=== PATIENT | female | born 1955 | race Caucasian/White ===

== ENCOUNTER → 2019-03-14 12:40 | Outpatient (CLI) | payer MEDICARE, SELFPAY ==
--- NOTE | 2019-03-14 12:57 | RAD_ITS ---
STUDY: X-RAY - PELVIS AND RIGHT HIP REASON FOR EXAM: Pain. TECHNIQUE: 2 views of the pelvis and hip. COMPARISON: None. 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 There is a medical research associate overlying the right abdomen. Normal visualized bilateral iliac wings, sacroiliac joints and visualized sacrum. Normal bilateral superior and inferior pubic rami. Normal pubic symphysis. Normal bilateral ischial tuberosities. Normal visualized femoral head. Normal acetabulum. Normal hip joint. 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 Electronically Signed: Steven Sanchez MD at 15:45 EDT Tel , Service support ,
== END ==
PROVIDERS: Family Provider Family Medicine; PCP Family Medicine; Referring Provider Anesthesiology Pain Medicine; Visit Provider Anesthesiology Pain Medicine
DX: M25.551 Pain in right hip (principal)
CPT/HCPCS: 73502

== ENCOUNTER → 2019-05-01 11:21 | Outpatient (CLI) | payer MEDICARE, SELFPAY ==
--- NOTE | 2019-05-01 11:30 | RAD_ITS ---
STUDY: X-RAY - LUMBAR SPINE REASON FOR EXAM: Female, 63 years old. Low back pain without injury TECHNIQUE: 3 view(s) of the lumbar spine were obtained. COMPARISON: None FINDINGS: Normal lumbar lordosis. There is no substantial scoliosis. There is a normal alignment of the vertebrae. Normal vertebral bodies and endplates. Normal disc space heights. Cholecystectomy clips. A pain pump is in place. RAD/Lumbar Spine 2 or 3 Views IMPRESSION: No osseous abnormality is evident. Electronically Signed: Tano White MD at 17:16 EDT Tel , Service support ,
== END ==
PROVIDERS: Family Provider Family Medicine; PCP Family Medicine; Referring Provider Anesthesiology Pain Medicine; Visit Provider Anesthesiology Pain Medicine
DX: M54.5 Low back pain (principal)
CPT/HCPCS: 72100

== ENCOUNTER → 2019-06-01 09:48 | Outpatient (CLI) | payer MEDICARE, SELFPAY ==
[2019-06-01 11:25] LABS: Hemoglobin 12.9 g/dL (12.0-15.0); Mean Corp Hgb Conc 33.1 g/dL (32-36); Mean Corpuscular Hgb 32.5 pg (27.0-32.0); Mean Corpuscular Volume 98.2 fL (81-99); Mean Platelet Vol. 12.1 fl (6.2-12.0); Platelet Count 147 K/mm3 (150-450); RBC Distribution Width CV 12.2 % (11.6-14.6); RBC Distribution Width SD 44.2 fl (35.1-43.9); Red Blood Count 3.97 M/mm3 (4.2-5.4); White Blood Count 4.8 K/mm3 (4.4-11.0)
== END ==
PROVIDERS: Family Provider Family Medicine; PCP Family Medicine; Referring Provider Anesthesiology; Visit Provider Anesthesiology
DX: M54.2 Cervicalgia (principal); M54.5 Low back pain; R23.3 Spontaneous ecchymoses
CPT/HCPCS: 36415; 85027

== ENCOUNTER → 2019-06-19 07:47 | Outpatient (CLI) | payer MEDICARE, SELFPAY ==
[2019-06-19 08:07] LABS: International Normalized Ratio 0.9; Prothrombin Time (Protime)PT. 12.4 SECONDS (11.7-14.9)
== END ==
PROVIDERS: Family Provider Family Medicine; PCP Family Medicine; Referring Provider Anesthesiology; Visit Provider Anesthesiology
DX: R23.3 Spontaneous ecchymoses (principal); M54.2 Cervicalgia; M54.5 Low back pain
CPT/HCPCS: 36415; 85610

== ENCOUNTER → 2019-06-26 14:01 | Outpatient (CLI) | payer MEDICARE, SELFPAY ==
--- NOTE | 2019-06-26 14:11 | RAD_ITS ---
HISTORY:CHRONIC PAIN, NKIPT HAS INFLAMMED BURSA AND CALCIUM BUILD-UP CHRONIC PAIN, NKIPT HAS INFLAMMED BURSA AND CALCIUM BUILD-UP COMPARISON: March 14, 2019 FINDINGS: # of images incl. paperwork: 3 XR Hip Unilateral with Pelvis when performed; 2-3 Views: Right BONE AND JOINTS: No acute fracture or subluxation. Again noted is calcification seen adjacent to the greater trochanter on the left. This may represent an enthesophyte versus calcific tendinitis. No evidence of an acute fracture is noted. SOFT TISSUES: Neurostimulator battery is visualized overlying the right ilium similar to prior study. The tip of the wire is not visualized on this study. RAD/HIP, UNI W/ Pelvis 2-3 Views IMPRESSION: Stable pelvis and right hip at 0155 Reported and signed by: Kamilah Vasquez DO Electronically Signed: Kamilah Vasquez DO at 1:54 EDT Tel , Service support ,
--- NOTE | 2019-06-26 14:11 | RAD_ITS ---
HISTORY:CHRONIC PAIN, NKIPT HAS INFLAMMED BURSA AND CALCIUM BUILD-UP CHRONIC PAIN, NKIPT HAS INFLAMMED BURSA AND CALCIUM BUILD-UP COMPARISON: None FINDINGS: # of images incl. paperwork: 4 XR Knee Complete 4 Views or More: Right BONE AND JOINTS: No acute fracture or subluxation. Mild lateral patellar tilt SOFT TISSUES: Unremarkable. No radiopaque foreign body. RAD/Knee 4 or More Views IMPRESSION: No acute pathology Mild lateral patellar tilt at 0030 Reported and signed by: Kamilah Vasquez DO Electronically Signed: Kamilah Vasquez DO at 0:29 EDT Tel , Service support ,
== END ==
PROVIDERS: Family Provider Family Medicine; PCP Family Medicine; Referring Provider Anesthesiology Pain Medicine; Visit Provider Anesthesiology Pain Medicine
DX: M25.559 Pain in unspecified hip (principal); M25.569 Pain in unspecified knee
CPT/HCPCS: 73502; 73564

== ENCOUNTER → 2019-08-22 06:18 | Outpatient (CLI) | payer MEDICARE, SELFPAY ==
--- NOTE | 2019-08-22 06:35 | MRI_ITS ---
STUDY: MRI RIGHT HIP REASON FOR EXAM: Right hip pain. TECHNIQUE: Standardized fat and water weighted pulse sequences were obtained in all 3 orthogonal planes. COMPARISON: Radiographs 06/26/2019 and 03/14/2019. FINDINGS: Normal hip joint without articular joint space narrowing. Normal acetabulum. Normal labrum. Normal femoral head. Normal femoral neck and intratrochanteric region. There is a suspected signal void in the right gluteus medius tendon at the greater trochanteric insertion without adjacent inflammation (inversion recovery axial image 19) suggestive of calcific tendinitis as demonstrated on the radiographs. Normal gluteus minimus and iliopsoas tendons and distal insertions. There is no trochanteric, iliopsoas or iliopectineal bursitis. Normal superior and inferior pubic rami. Normal pubic symphysis. Normal ischial tuberosity. Normal origin of the hamstring tendons. Normal visualized iliac wing, sacroiliac joint, and sacral ala. There is artifact from an implanted pain pump. MRI/Lower Ext Joint Only (Routine) IMPRESSION: Calcific tendinitis of the right gluteus medius tendon without adjacent inflammation. Otherwise, unremarkable MRI of the right hip. Electronically Signed: Steven Sanchez MD at 8:23 EDT Tel , Service support ,
== END ==
PROVIDERS: Family Provider Family Medicine; PCP Family Medicine; Referring Provider Specialist; Visit Provider Specialist
DX: M25.551 Pain in right hip (principal)
CPT/HCPCS: 73721

== ENCOUNTER → 2020-09-11 12:09 | Outpatient (CLI) | payer MEDICARE, MEDICAID, SELFPAY ==
--- NOTE | 2020-09-11 12:12 | RAD_ITS ---
STUDY: X-RAY - SACRUM/COCCYX REASON FOR EXAM: Female, 65 years old. pelvic and tailbone pain -- NKI TECHNIQUE: 3 view(s) of the sacrum and coccyx were obtained. COMPARISON: None. FINDINGS: Normal bilateral sacroiliac joints. Normal visualized sacral ala and fused sacral bodies. Normal sacrococcygeal junction with a normal angulation. Normal coccygeal segments. The presacral soft tissue structures are unremarkable. RAD/Sacrum-Coccyx min 2 Views IMPRESSION: Normal x-rays of the sacrum and coccyx. Electronically Signed: Joe Quinones MD at 17:03 EST Tel , Service support ,
== END ==
PROVIDERS: PCP Family Medicine; Visit Provider Anesthesiology Pain Medicine
DX: R10.2 Pelvic and perineal pain (principal); M53.3 Sacrococcygeal disorders, not elsewhere classified
CPT/HCPCS: 72220

== ENCOUNTER → 2022-02-25 | Outpatient (CLI) | payer MEDICARE, MEDICAID, SELFPAY ==
--- NOTE | 2022-02-25 09:57 | MRI_ITS ---
STUDY: MRI CERVICAL SPINE WITHOUT CONTRAST REASON FOR EXAM: Female, 66 years old. Neck Pain radiating into R arm, no injury TECHNIQUE: Standardized fat and water weighted pulse sequences were obtained in the sagittal and axial planes. COMPARISON: Cervical spine radiographs 02/05/2022. FINDINGS: Normal foramen magnum and brainstem-cervical cord junction. Normal craniovertebral junction. Normal anterior atlantoaxial articulation. Normal odontoid process. Normal cervical lordosis. Normal vertebral bodies and posterior osseous elements. C2-3: Normal endplates. Normal disc height, signal and morphology. Normal central canal and intervertebral neural foramina. C3-4: Normal endplates. Normal disc height, signal and morphology. Normal central canal and intervertebral neural foramina. C4-5: Normal endplates. Minimal disc space height narrowing. Minimal ventral extra dural defect due to bone spurs. Normal central canal and intervertebral neural foramina. C5-6: Normal endplates. Minimal disc space height narrowing. Normal central canal and intervertebral neural foramina. C6-7: Normal endplates. Normal disc height, signal and morphology. Normal central canal and intervertebral neural foramina. C7-T1: Normal endplates. Normal disc height, signal and morphology. Normal central canal and intervertebral neural foramina. T1-T2, T2-T3, T3-T4 and T4-T5: (Sagittal only). Normal endplates. Normal disc height, signal and morphology. No ventral extradural defects. Normal central canal and intervertebral neural foramina. Small round lower T4 benign vertebral body hemangioma. Normal cervical cord. Normal upper thoracic spinal cord. Normal included brainstem and cerebellum. Normal visualized soft tissue structures. MRI/Spine Cervical (Routine) IMPRESSION: 1. No MRI evidence of cervical extruded disc fragment or cervical nerve root displacement. 2. Minimal C4-C5 disc space height narrowing with minimal ventral extradural defects on both sides due to bone spurs. 3. Normal cervical spinal cord. Electronically Signed: Bebeto Hernandez MD at 16:05 EDT ,
== END | disposition home or self-care (01) ==
LOC: MRI 09:57
PROVIDERS: PCP Family Medicine
DX: M48.02 Spinal stenosis, cervical region (principal)
CPT/HCPCS: 72141

== ENCOUNTER → 2023-11-10 | Outpatient (CLI) | payer MEDICARE, MEDICAID, SELFPAY ==
--- NOTE | 2023-11-10 12:12 | RAD_ITS ---
EXAM: XR CERVICAL SPINE, 4 OR 5 VIEWS CLINICAL INDICATION: Spondylosis without myelopathy or radiculopathy, site unspecified TECHNIQUE: Frontal, lateral and bilateral oblique views of the cervical spine. COMPARISON: No relevant prior studies available. FINDINGS: VERTEBRAE: Unremarkable. Preserved vertebral body height. No acute fracture. No spondylolisthesis. Preservation of the normal cervical lordosis. No significant facet arthropathy. DISC SPACES: Unremarkable. Disc spaces are maintained. SOFT TISSUES: Unremarkable. No prevertebral soft tissue widening. LUNG APICES: Clear. RAD/Cerv Spine 2 or 3 Views IMPRESSION: No evidence of acute fracture or spondylolisthesis. Electronically Signed: Cuate Cast MD at 17:56 EST ,
--- OUTSIDE RECORDS SUMMARY | 2023-11-10 12:19 | XMS RPT_ITS | CCD ---
Author Name Unknown Address [id number] [place] [address] Organization [facility] Care Team Providers Care Manager Building Name Role Phone SOBEIDA MORALES Referring Unavailable SOBEIDA MORALES Y Admitting Unavailable SOBEIDA MORALES Attending Unavailable SOBEIDA MORALES Referring Unavailable Conor Sprague Primary Care Provider [phone] Conor Sprague Primary Care Provider [phone] Conor Sprague DO Primary Care Provider Conor Sprague DO Primary Care Provider Conor Sprague DO Primary Care Provider Conor Sprague DO Primary Care Provider Conor Sprague Attending Unavailable PROVIDER, UNKNOWN Referring Unavailable Conor Sprague Primary Care Unavailable Conner Weber Attending Unavailable PROVIDER, UNKNOWN Referring Unavailable Conor Sprague Primary Care Unavailable Conor Sprague Attending Unavailable PROVIDER, UNKNOWN Referring Unavailable Conor Sprague Primary Care Unavailable Conor Sprague Attending Unavailable PROVIDER, UNKNOWN Referring Unavailable Conor Sprague Primary Care Unavailable Simone Gramajo Attending Unavailable PROVIDER, UNKNOWN Referring Unavailable Conor Sprague Primary Care Unavailable PROVIDER, UNKNOWN Attending Unavailable PROVIDER, UNKNOWN Referring Unavailable Conor Sprague Primary Care Unavailable Conor Sprague Attending Unavailable PROVIDER, UNKNOWN Referring Unavailable Conor Sprague Primary Care Unavailable Rose Marie Cohen DO Primary Care Provider Marck Dc MD Unavailable [phone] Rose Marie Cohen DO Primary Care Provider Marck Dc MD Unavailable Rose Marie Cohen DO Primary Care Provider COHEN, ROSE MARIE Attending Unavailable COHEN, ROSE MARIE Primary Care Unavailable COHEN, ROSE MARIE Primary Care Unavailable JOURILES, ELIESER Attending Unavailable JOURILES, ELIESER Referring Unavailable COHEN, ROSE MARIE Primary Care Unavailable COHEN, ROSE MARIE Attending Unavailable COHEN, ROSE MARIE Referring Unavailable COHEN, ROSE MARIE Primary Care Unavailable COHEN, ROSE MARIE Attending Unavailable COHEN, ROSE MARIE Primary Care Unavailable MARCK DC Attending Unavailable COHEN, ROSE MARIE Primary Care Unavailable COHEN, ROSE MARIE Attending Unavailable COHEN, ROSE MARIE Primary Care Unavailable COHEN, ROSE MARIE Attending Unavailable COHEN, ROSE MARIE Primary Care Unavailable COHEN, ROSE MARIE Attending Unavailable COHEN, ROSE MARIE Primary Care Unavailable Allergies Allergy Classification Reported Allergen(s) Allergy Type Date of Onset Reaction(s) Facility Adhesive Tape (3 sources) Adhesive Tape Substance Allergy 8 Other (See Comments) [facility] Cephalosporins (antibiotic) (3 sources) Cephalexin Drug Allergy 1 [facility] Germanium (3 sources) Germanium Drug Allergy 0 Nausea Only [facility] Quinolones (antibiotic) (3 sources) Ciprofloxacin Drug Allergy 1 [facility] (1 source) Adhesive agent; Translations: [ADHESIVE] Propensity to adverse reactions to drug (disorder) 8 [facility] Repository (1 source) NEOMYCIN-BACITRAC IN-POLYMYXIN; Translations: [NEOMYCIN-BACITRA TASNEEM-POLYMYXIN] Propensity to adverse reactions to drug (disorder) 1 [facility] Repository (16 sources) Adhesive Tape Propensity to adverse reactions to drug 8 Other (See Comments) [place], [place] (20 sources) Bacitracin / Neomycin / Polymyxin B Drug Allergy 1 Rash [place], [place] (20 sources) Neomycin-Polymyxi n-Gramicidin Propensity to adverse reactions to drug 5 Rash [place], [place] (10 sources) Germanium Drug Allergy 0 Nausea Only [place], [place] (20 sources) Cephalexin Drug Allergy 1 [facility] Work Phone: (20 sources) Ciprofloxacin Drug Allergy 1 [facility] Work Phone: (11 sources) Neospor[address] Plus [address] Propensity to adverse reactions to drug 0 Rash [facility] (16 sources) Bacitracin Drug Allergy 2 [facility] (16 sources) Germanium Drug Allergy 0 Nausea Only [facility] (16 sources) Neomycin Drug Allergy 2 [facility] (16 sources) Pneumococcal vaccine Drug Allergy 2 [facility] (16 sources) Polymyxin B Drug Allergy 2 [facility] (12 sources) Gdw-Unjfk-Vona-Li docaine Drug Allergy 0 Rash [facility] NEGATED: Highlighted row has been ruled out! (3 sources) Other Propensity to adverse reactions 0 [facility] Work Phone: Medications Current Medications Medication Drug Class(es) Dates Sig (Normalized) Sig (Original) [id number] actuat albuterol 0.09 mg/actuat metered dose inhaler (20 sources) beta2-Adrenergic Agonist Start: 07-01-2023 End: 06-30-2024 take 2 puff(s) by inhalation every six hours as needed for wheezing albuterol (ProAir HFA) 108 (90 Base) MCG/ACT inhaler Inhale 2 puffs every 6 hours as needed for wheezing. 18 g 11 07/01/2023 06/30/2024 Active Completed/Discontinued Medications Medication Drug Class(es) Dates Sig (Normalized) Sig (Original) acetaminophen 325 mg oral tablet (17 sources) Start: 01-28-2022 End: 01-28-2022 acetaminophen (TYLENOL) tablet 650 mg Problems Active Problems Problem Classification Problem Date Documented Da te Episodic/Chronic Abdominal pain (20 sources) Abdominal pain; Translations: [Unspecified abdominal pain] Onset: 05-08-2015 Resolved: 12-07-2018 12-07-2018 Episodic Anxiety disorders (20 sources) Mixed anxiety and depressive disorder; Translations: [Anxiety disorder, unspecified] Onset: 04-08-2016 04-08-2016 Chronic Cancer of bladder (20 sources) Malignant neoplasm of bladder, unspecified; Translations: [Malignant tumor of urinary bladder] Onset: 04-27-2018 04-04-2019 Chronic Chronic obstructive pulmonary disease and bronchiectasis (20 sources) Chronic obstructive lung disease; Translations: [Mixed simple and mucopurulent chronic bronchitis] Onset: 10-24-2016 12-07-2018 Chronic Disorders of lipid metabolism (2 sources) Pure hypercholesterolemi a, unspecified; Translations: [Pure hypercholesterolemi a, unspecified] Onset: 01-28-2022 Chronic Esophageal disorders (2 sources) Gastro-esophageal reflux disease without esophagitis; Translations: [Gastro-esophageal reflux disease without esophagitis] Onset: 01-28-2022 Chronic Fluid and electrolyte disorders (1 source) Dehydration; Translations: [Dehydration] Episodic Headache; including migraine (2 sources) Headache; Translations: [Intractable headache, unspecified chronicity pattern, unspecified headache type] Episodic Headache; including migraine (2 sources) Headache; including migraine; Translations: [Headache, unspecified] Onset: 01-28-2022 Nonmalignant breast conditions (1 source) Lump in lower outer quadrant of right breast; Translations: [Unspecified lump in the right breast, lower outer quadrant] Episodic Occlusion or stenosis of precerebral arteries (4 sources) Bilateral stenosis of carotid arteries; Translations: [Occlusion and stenosis of bilateral carotid arteries] Onset: 02-22-2023 Chronic Other connective tissue disease (6 sources) Tendinitis of right hip; Translations: [Tendinitis of right hip] Onset: 02-22-2019 02-22-2019 Other lower respiratory disease (2 sources) Pulmonary fibrosis, unspecified; Translations: [Pulmonary fibrosis, unspecified] Onset: 11-06-2021 Chronic Other lower respiratory disease (1 source) Lung field abnormal; Translations: [Other nonspecific abnormal finding of lung field] Episodic Other non-traumatic joint disorders (1 source) Pain in right hip joint; Translations: [Pain in right hip] Episodic Other skin disorders (1 source) Lesion of skin of face; Translations: [Disorder of the skin and subcutaneous tissue, unspecified] 10-06-2023 Episodic Other skin disorders (2 sources) Disorder of the skin and subcutaneous tissue, unspecified; Translations: [Disorder of the skin and subcutaneous tissue, unspecified] Onset: 10-06-2023 Episodic Septicemia (except in labor) (6 sources) 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; Translations: [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] Onset: 12-07-2018 12-07-2018 Spondylosis; intervertebral disc disorders; other back problems (20 sources) Inflammation of sacroiliac joint; Translations: [Sacroiliitis, not elsewhere classified] Onset: 08-09-2019 Resolved: 05-19-2021 08-09-2019 Chronic Substance-related disorders (20 sources) Smoker; Translations: [Nicotine dependence] Onset: 03-24-2016 03-24-2016 Chronic Unclassified (1 source) Pre-Op Exam Onset: 06-14-2018 Unclassified (1 source) Evaluation finding; Translations: [Blood tests prior to treatment or procedure] Unclassified (1 source) Patient encounter status; Translations: [Encounter for screening for lung cancer] Urinary tract infections (20 sources) Recurrent urinary tract infection; Translations: [Urinary tract infection, site not specified] Onset: 01-02-2020 01-02-2020 Episodic Past or Other Problems Problem Classification Problem Date Documented Da te Episodic/Chronic Allergic reactions (4 sources) Allergy status to other antibiotic agents status; Translations: [Allergy status to other drugs, medicaments and biological substances status] Onset: 01-28-2022 Episodic Anal and rectal conditions (19 sources) Rectal polyp; Translations: [Rectal polyp] Onset: 04-11-2018 Resolved: 12-07-2018 12-07-2018 Episodic Biliary tract disease (19 sources) Biliary colic; Translations: [Calculus of bile duct without cholangitis or cholecystitis without obstruction] Onset: 07-07-2015 Resolved: 12-07-2018 12-07-2018 Episodic Cancer of bladder (3 sources) H/O: malignant neoplasm; Translations: [Personal history of malignant neoplasm of bladder] Onset: 01-28-2022 Episodic Chronic obstructive pulmonary disease and bronchiectasis (3 sources) Bronchitis; Translations: [Bronchitis, not specified as acute or chronic] Onset: 01-28-2022 Episodic Coagulation and hemorrhagic disorders (10 sources) Platelet count below reference range; Translations: [Thrombocytopenia, unspecified] Onset: 08-09-2019 Resolved: 05-19-2021 08-09-2019 Chronic Conditions associated with dizziness or vertigo (4 sources) Dizziness; Translations: [Dizziness and giddiness] Onset: 06-15-2023 06-15-2023 Episodic Genitourinary symptoms and ill-defined conditions (20 sources) Scalding pain on urination ; Translations: [Increased frequency of urination] Onset: 05-11-2022 Episodic Immunizations and screening for infectious disease (4 sources) Viral screening status; Translations: [Encounter for screening for other viral diseases] Onset: 06-15-2023 06-15-2023 Episodic Mood disorders (11 sources) Mood disorders; Translations: [Depression, unspecified] Onset: 01-28-2022 Nausea and vomiting (2 sources) Nausea with vomiting, unspecified; Translations: [Nausea with vomiting, unspecified] Onset: 08-17-2021 Episodic Open wounds of extremities (4 sources) Tear of skin; Translations: [Laceration without foreign body of left forearm, initial encounter] Onset: 06-15-2023 06-15-2023 Episodic Other aftercare (2 sources) Other usp (current) drug therapy; Translations: [Other usp (current) drug therapy] Onset: 01-28-2022 Episodic Other and unspecified benign neoplasm (19 sources) History of polyp of colon; Translations: [Personal history of colonic polyps] Onset: 01-23-2018 Resolved: 12-07-2018 12-07-2018 Episodic Other and unspecified benign neoplasm (19 sources) Polyp of ascending colon; Translations: [Polyp of colon] Onset: 04-11-2018 Resolved: 04-11-2018 04-11-2018 Episodic Other bone disease and musculoskeletal deformities (2 sources) Disorder of bone density and structure, unspecified; Translations: [Disorder of bone density and structure, unspecified] Onset: 09-23-2021 Episodic Other circulatory disease (20 sources) Carotid bruit; Translations: [Other specified symptoms and signs involving the circulatory and respiratory systems] Onset: 12-05-2017 12-05-2017 Episodic Other circulatory disease (3 sources) Other specified symptoms and signs involving the circulatory and respiratory systems; Translations: [Other symptoms involving cardiovascular system] Onset: 08-17-2021 Episodic Other connective tissue disease (20 sources) Tendinitis of right hip; Translations: [Other specified enthesopathies of right lower limb, excluding foot] Onset: 02-22-2019 02-22-2019 Episodic Other gastrointestinal disorders (20 sources) Drug-induced constipation; Translations: [Drug induced constipation] Onset: 04-11-2018 04-11-2018 Episodic Other gastrointestinal disorders (2 sources) Mass of pancreas; Translations: [Pancreatic mass] Episodic Other lower respiratory disease (20 sources) Lung mass; Translations: [Other nonspecific abnormal finding of lung field] Onset: 03-02-2021 03-02-2021 Episodic Other non-traumatic joint disorders (2 sources) Pain in right hip; Translations: [Pain in right hip] Onset: 08-19-2021 Episodic Other screening for suspected conditions (not mental disorders or infectious disease) (13 sources) Computed tomography result abnormal; Translations: [Abnormal findings on diagnostic imaging of other specified body structures] Onset: 04-11-2018 Resolved: 12-07-2018 12-07-2018 Chronic Other screening for suspected conditions (not mental disorders or infectious disease) (20 sources) Platelet count below reference range; Translations: [Encounter for screening for malignant neoplasm of respiratory organs] Onset: 08-09-2019 08-09-2019 Episodic Pancreatic disorders (not diabetes) (1 source) Disorder of pancreas; Translations: [Other specified diseases of pancreas] Episodic Residual codes; unclassified (6 sources) Computed tomography result abnormal; Translations: [Abnormal finding on CT scan] Onset: 04-11-2018 Resolved: 12-07-2018 12-07-2018 Episodic Residual codes; unclassified (2 sources) Asymptomatic menopausal state; Translations: [Asymptomatic menopausal state] Onset: 09-23-2021 Episodic Septicemia (except in labor) (20 sources) 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; Translations: [Other herpesviral infection] Onset: 12-07-2018 12-07-2018 Episodic Spondylosis; intervertebral disc disorders; other back problems (20 sources) Neck pain; Translations: [Spinal stenosis of lumbar region] Onset: 02-22-2019 02-22-2019 Episodic Results Test Name Value Interpretation Reference Range Facil ity Vital Signs Date Time Vital Sign Value Performing Clinician Faci lity 10-06-2023 14:03-0500 Body height 160 cm Rose Marie Cohen DO Work Phone: [employer] 10-06-2023 14:03-0500 Body mass index (BMI) [Ratio] 19.84 kg/m2 Rose Marie Cohen DO Work Phone: [facility] 10-06-2023 14:03-0500 Body weight 50.8 kg Rose Marie Cohen DO Work Phone: [facility] 10-06-2023 14:03-0500 Diastolic blood pressure 60 mm[Hg] Rose Marie Cohen DO Work Phone: [facility] 10-06-2023 14:03-0500 Heart rate 70 /min Rose Marie Cohen DO Work Phone: [facility] 10-06-2023 14:03-0500 SaO2% (BldA) [Mass fraction] 97 % Rose Marie Cohen DO Work Phone: [facility] 10-06-2023 14:03-0500 Systolic blood pressure 95 mm[Hg] Rose Marie Cohen DO Work Phone: [facility] 10-05-2023 17:02-0500 Diastolic blood pressure 76 mm[Hg] Elieser Christianson MD Work Phone: [facility] 10-05-2023 17:02-0500 Heart rate 78 /min Elieser Christianson MD Work Phone: [facility] 10-05-2023 17:02-0500 Respiratory rate 16 /min Elieser Christianson MD Work Phone: [facility] 10-05-2023 17:02-0500 SaO2% (BldA) [Mass fraction] 98 % Elieser Christianson MD Work Phone: [facility] 10-05-2023 17:02-0500 Systolic blood pressure 128 mm[Hg] Elieser Christianson MD Work Phone: [facility] 10-05-2023 15:10-0500 Body mass index (BMI) [Ratio] 19.31 kg/m2 Elieser Christianson MD Work Phone: [facility] 10-05-2023 15:10-0500 Body weight 49.44 kg Elieser Christianson MD Work Phone: [facility] 06-15-2023 08:52-0400 Body height 160 cm Rose Marie Cohen DO Work Phone: [facility] 06-15-2023 08:52-0400 Body mass index (BMI) [Ratio] 19.7 kg/m2 Rose Marie Cohen DO Work Phone: [facility] 06-15-2023 08:52-0400 Body temperature 97.7 [degF] Rose Marie Cohen DO Work Phone: [facility] 06-15-2023 08:52-0400 Body weight 50.44 kg Rose Marie Cohen DO Work Phone: [facility] 06-15-2023 08:52-0400 Diastolic blood pressure 64 mm[Hg] Rose Marie Cohen DO Work Phone: [facility] 06-15-2023 08:52-0400 Heart rate 74 /min Rose Marie Cohen DO Work Phone: [facility] 06-15-2023 08:52-0400 SaO2% (BldA) [Mass fraction] 99 % Rose Marie Cohen DO Work Phone: [facility] 06-15-2023 08:52-0400 Systolic blood pressure 98 mm[Hg] Rose Marie Cohen DO Work Phone: [facility] 01-28-2022 13:40-0400 Diastolic blood pressure 74 mm[Hg] Ritesh Lawton MD Work Phone: [facility] 01-28-2022 13:40-0400 Heart rate 71 /min Ritesh Lawton MD Work Phone: [facility] 01-28-2022 13:40-0400 Respiratory rate 16 /min Ritesh Lawton MD Work Phone: [facility] 01-28-2022 13:40-0400 SaO2% (BldA) [Mass fraction] 99 % Ritesh Lawton MD Work Phone: [facility] 01-28-2022 13:40-0400 Systolic blood pressure 123 mm[Hg] Ritesh Lawton MD Work Phone: [facility] 01-28-2022 11:00-0400 Body temperature 97.7 [degF] Ritesh Lawton MD Work Phone: [facility] 05-14-2021 22:44-0400 Body temperature 97.5 [degF] Casper Amor MD Work Phone: [facility] Work Phone: 05-14-2021 22:44-0400 Diastolic blood pressure 60 mm[Hg] Casper Amor MD Work Phone: [facility] Work Phone: 05-14-2021 22:44-0400 Heart rate 62 /min Casper Amor MD Work Phone: [facility] Work Phone: 05-14-2021 22:44-0400 Respiratory rate 15 /min Casper Amor MD Work Phone: [facility] Work Phone: 05-14-2021 22:44-0400 SaO2% (BldA) [Mass fraction] 97 % Casper Amor MD Work Phone: [facility] Work Phone: 05-14-2021 22:44-0400 Systolic blood pressure 94 mm[Hg] Casper Amor MD Work Phone: [facility] Work Phone: 05-14-2021 20:28-0400 Body height 160 cm Casper Amor MD Work Phone: [facility] Work Phone: 05-14-2021 20:28-0400 Body mass index (BMI) [Ratio] 19.31 kg/m2 Casper Amor MD Work Phone: [facility] Work Phone: 05-14-2021 20:28-0400 Body weight 49.44 kg Casper Amor MD Work Phone: [facility] Work Phone: 03-13-2021 13:29-0400 Heart rate 72 /min Erwin Etienne MD Work Phone: [facility] Work Phone: 03-13-2021 13:29-0400 Respiratory rate 18 /min Erwin Etienne MD Work Phone: [facility] Work Phone: 03-13-2021 13:29-0400 SaO2% (BldA) [Mass fraction] 97 % Eriwn Etienne MD Work Phone: [facility] Work Phone: Encounters Encounter Date Encounter Type Care Provider Facility Start: 10-06-2023 End: 10-06-2023 ambulatory ROSE MARIE COHEN [facility] Start: 10-06-2023 End: 10-06-2023 Office outpatient visit 15 minutes Rose Marie Cohen DO Work Phone: [facility] Procedures Date Procedure Procedure Detail Performing Clinician Start: 10-05-2023 Ct abdomen & pelvis w/contrast material Elieser Christianson MD Work Phone: Start: 10-05-2023 Urinalysis complete panel - Urine Elieser Christianson MD Work Phone: Start: 10-05-2023 Urnls dip stick/tabl et reagent auto microscopy Elieser Christianson MD Work Phone: Start: 10-05-2023 Basic metabolic pane l calcium total Elieser Christianson MD Work Phone: Start: 06-17-2023 Lipid 1996 panel - S stefany or Plasma Rose Marie Cohen DO Work Phone: Start: 06-15-2023 Culture bacterial quanttative colony count urine Rose Marie Cohen DO Work Phone: Start: 06-15-2023 Urnls dip stick/tabl et rgnt auto w/o microscopy Rose Marie Cohen DO Work Phone: Start: 02-02-2023 Urnls dip stick/tabl et rgnt auto w/o microscopy Marck Dc MD Work Phone: Start: 07-15-2022 End: 07-15-2022 Screening digital breast tomosynthesis lorena Sprague DO Work Phone: Start: 01-28-2022 Radiologic exam ches t 2 views Ritseh Lawton MD Work Phone: Start: 01-28-2022 Basic metabolic pane l calcium total Ritesh Lawton MD Work Phone: Start: 08-19-2021 Radex hip unilateral with pelvis 2-3 views Conor Rucker Eusebiojessicacecil DO Work Phone: Start: 08-17-2021 Duplex scan extracra nial art compl bi study Conor Rucker Katiejayantcecil DO Work Phone: Start: 08-17-2021 Mri brain brain stem w/o w/contrast material Hung Flores Denisha DO Work Phone: Start: 07-13-2021 Us breast uni real t mary beth with image limited Conor Rucker Katiejayantcecil DO Work Phone: Start: 07-13-2021 Diagnostic mammograp hy computer-aided detcj bi Conor Rucker Darcie DO Work Phone: Start: 07-13-2021 MG CANCER RISK SURVEY P aurakesh Sprague DO Work Phone: Start: 05-14-2021 ADD ON LAB TEST Casper Amor MD Work Phone: Start: 05-14-2021 Ct head/brain w/o co ntrast material Casper Amor MD Work Phone: Start: 05-14-2021 Comprehensive metabo lic panel Casper Amor MD Work Phone: Start: 05-14-2021 Radiologic exam ches t 2 views Casper Amor MD Work Phone: Start: 05-14-2021 Urnls dip stick/tabl et rgnt auto w/o microscopy Casper Amor MD Work Phone: Start: 03-13-2021 Brncdilat rspse spmt ry pre&post-brncdilat admn Erwin Etienne MD Work Phone: Start: 09-29-2020 Creatinine blood Conor Sprague Work Phone: Start: 05-21-2020 Screening digital br east tomosynthesis bi Conor Rucker Darcie Work Phone: Start: 11-30-2019 Mri spinal canal tho racic w/o contrast matrl Andrew Block Work Phone: Start: 11-09-2019 Urnls dip stick/tabl et rgnt auto w/o microscopy Mirlande Hall [employer] Work Phone: Start: 11-06-2019 Mri spinal canal lum bar w/o contrast material Andrew Block MD Work Phone: Start: 10-18-2019 Urnls dip stick/tabl et rgnt auto w/o microscopy Marck Dc MD Work Phone: Start: 09-19-2019 Ldct for lung ca screen Conor Rucker Darcie Work Phone: Start: 04-11-2018 Colonoscopy Ritesh sevilla MD Work Phone: Plan of Treatment Date Care Activity Detail Author Start: 05-19-2030 DTaP/Tdap/Td vaccine (2 - Td or Tdap) DTaP/Tdap/Td vaccine (2 - Td or Tdap) [facility] Start: 05-19-2030 DTaP/Tdap/Td vaccine (2 - Td) DTaP/Tdap/Td vaccine (2 - Td) [place] Start: 05-19-2030 DTaP/Tdap/Td Vaccine s (2 - Td or Tdap) DTaP/Tdap/Td Vaccines (2 - Td or Tdap) [facility] Start: 06-17-2028 Lipid panel Lipid Panel [facility] Start: 04-11-2028 Screening for malign ant neoplasm of colon [facility] Start: 04-11-2025 Colon cancer screen colonoscopy Colon cancer screen colonoscopy [place] Start: 04-11-2025 Screening for malign ant neoplasm of colon [facility] Start: 07-31-2024 Medicare Advantage Annual Wellness Visit (AWV) Medicare Advantage Annual Wellness Visit (AWV) [facility] Start: 06-17-2024 Diabetes mellitus screening Diabetes Screening [facility] Start: 02-01-2024 End: 02-01-2024 Patient encounter procedure [facility] Start: 12-30-2023 Depresssion Monitoring Depresssion M onitoring [facility] Start: 11-08-2023 End: 11-08-2023 Patient encounter procedure MARIA FARERI [facility] Start: 10-11-2023 End: 10-11-2023 Patient encounter procedure 10/11/2023 1:40 PM EST Office Visit [facility] [address] [place] [address] Rd [address] [place] [address] Rose Marie Cohen, [address] [facility] [address] [place] [address] [facility] Start: 10-06-2023 End: 10-06-2023 Patient encounter procedure 10/06/2023 2:00 PM EST Office Visit [address] [place] [address] Rose Marie Cohen DO [address] [facility] [address] [place] [address] [facility] Start: 09-12-2023 End: 09-12-2024 CT Chest for screening WO contrast CT lung screening low dose Imaging Routine Cigarette nicotine dependence without complication Expected: 09/12/2023, Expires: 09/12/2024 [facility] Work Phone: Immunizations Immunization Date Immunization Notes Care Provider Fa cili 08-06-2022 influenza virus vacc ine, unspecified formulation Rose Marie Cohen DO Work Phone: [facility] 11-03-2021 COVID-19, Moderna, Primary or Immunocompromised, PF, 100mcg/0.5mL Ritesh Lawton MD Work Phone: [facility] Work Phone: 03-13-2021 COVID-19, Moderna, Primary or Immunocompromised, PF, 100mcg/0.5mL Conor Jassoo DO Work Phone: [facility] Work Phone: 02-13-2021 COVID-19, Moderna, Primary or Immunocompromised, PF, 100mcg/0.5mL Conor Jassoo DO Work Phone: [facility] Work Phone: 05-19-2020 tetanus toxoid, redu ziggy diphtheria toxoid, and acellular pertussis vaccine, adsorbed [facility] 07-25-2019 influenza, injectabl e, quadrivalent, preservative free [facility] 08-08-2018 influenza, injectabl e, quadrivalent, contains preservative [facility] [place] 10-04-2017 influenza, injectabl e, quadrivalent, preservative free [facility] [place] 08-12-2016 influenza, injectabl e, quadrivalent, contains preservative [facility] 04-22-2016 zoster vaccine, live [facility] 11-27-2015 pneumococcal polysaccharide vaccine, 23 valent [facility] 07-29-2014 influenza virus vacc ine, unspecified formulation [facility] , [place] 08-27-2010 pneumococcal Conjuga te, unspecified formulation [facility] [place] 01-23-2003 tetanus toxoid, unspecified formulation [facility] [place] Payers Date Payer Category Payer Medicaid [id number] 2022 Medicaid [id number] 2022 Medicare [id number] 2022 Medicare [id number] 2018 Private Health Insurance [facility] DUAL xxxxxxxxx 2018-Present [address] [place] [address] xxxxxxxxx [id number] 2018 Private Health Insurance [facility] DUAL [id number] 2018-Present [address] [place] [address] [id number] 2018 Private Health Insurance [id number] 1955 Unknown [id number] 1955 Unknown [id number] 1955 Unknown [id number] 1955 Unknown [id number] 1955 Unknown [id number] 1955 Unknown [id number] 1955 Unknown [id number] Private Health Insurance Social History Date Type Detail Facility Start: 05-08-1971 End: 01-07-2023 Tobacco smoking status NHIS Current every day smoker [place], [place] Start: 05-08-1971 History of tobacco use Cigarette Smo ker [place], [place] Start: 08-01-2019 End: 07-01-2023 Cigarettes smoked current (pack per day) - Reported [place], [place] Start: 08-01-2019 End: 10-06-2023 Alcohol intake Current non-drinker of alcohol (finding) [place] Start: 02-05-2019 History SDOH Alcohol Frequency 1 [place] Start: 02-05-2019 History SDOH Social Connections Phone 5 [place] Start: 02-05-2019 End: 11-10-2021 History SDOH Social Connections Get Together 2 [place] Start: 02-05-2019 History SDOH Social Connections Living 98 [place], [place] Start: 02-05-2019 History SDOH Physica l Activity DPW 0 [place] Start: 02-05-2019 End: 11-10-2021 History SDOH Financial 4 [place], [place] Start: 1955 Sex Assigned At Not on file [place], [place] Start: 05-19-2020 End: 01-07-2023 Tobacco use and exposure Never used [place], [place] Start: 01-18-2022 End: 07-01-2023 Exposure to SARS-CoV-2 (event) Not sure [place], [place] Start: 02-02-2023 End: 07-01-2023 Tobacco use panel [facility] Adolescent depressio n screening assessment 0 [facility] Goals Date Patient Goal Desired Activity /State Clinical Notes 01-30-2021 to 10-06-2023 Rose Marie Cohen, - 10/06/2023 2:00 PM Chaitanya Christianson MD - 10/05/2023 2:59 PM Nayla Werner RN - 10/05/2023 2:59 PM Nayla Werner RN - 10/05/2023 2:59 PM Sushant Instr - TASHA Note Date & Type Note Facility 10-06-2023 History of Present illness Narrative Images from the original note were not included. [facility] [address] [facility] [address] [facility] [address] Visit type: Established Patient Reason for Visit: Skin Lesion (Forehead , Nose Pt seen in ER yesterday for abdominal pain Urine culture in process ) Assessment and Plan Diagnoses and all orders for this visit: Benign skin lesion of face - Ambulatory referral to Dermatology; Future Acute cystitis without hematuria Reviewed ER visit CT scan with no acute findings, but does show a pancreatic cyst and renal cyst that are stable UA consistent with UTI - continue bactrim and await urine culture results No follow-ups on file. Subjective HPI She was in the ER for abd pain Found to have UTI - tx'd with bactrim Pain is a little better today but given pain shot, she is on a pain pump, this is making her feel loopy Does have dysuria Tried azo - this seems to help a bit Has an area on her forehead that is getting darker Review of Systems Constitutional: Negative for appetite change, chills, fatigue and fever. Respiratory: Negative for cough, shortness of breath and wheezing. Cardiovascular: Negative for chest pain, palpitations and leg swelling. Gastrointestinal: Positive for abdominal pain. Genitourinary: Positive for dysuria. Allergies Allergen Reactions Bacitracin Other reaction(s): rash, itcing, U Cephalexin Other reaction(s): GI Upset Other reaction(s): GI Upset Ciprofloxacin Hcl Other reaction(s): Unknown Other reaction(s): Unknown Germanium Nausea Only Other reaction(s): GI Upset Can tolerate AZO Other reaction(s): GI Upset Can tolerate AZO Can tolerate AZO Neomycin Other reaction(s): rash, itcing, U Pneumococcal Vaccine Swelling and redness Polymyxin B Other reaction(s): rash, itcing, U Icj-Kdngw-Cvva-Lidocaine Rash Other reaction(s): Unknown Other reaction(s): Unknown Other reaction(s): Unknown Neomycin-Bacitracin Zn-Polymyx Rash Onpougnk-Akemhssbj-Ocacxosobq Rash Outpatient Medications Prior to Visit Medication Sig Dispense Refill Acetaminophen 500 MG capsule Take by mouth. albuterol (ProAir HFA) 108 (90 Base) MCG/ACT inhaler Inhale 2 puffs every 6 hours as needed for wheezing. 18 g 11 BIOTIN BEAUTY EXTRA STRENGTH PO Take by mouth. Diclofenac Sodium (Voltaren) 1 % gel APPLY ONE GRAM TO THE AFFECTED AREA TWO TO THREE TIMES DAILY fluticasone (Flonase) 50 MCG/ACT nasal spray USE 2 SPRAY(S) IN EACH NOSTRIL ONCE DAILY 16 g 3 HYDROmorphone (Dilaudid) 4 MG/ML injection by Other route. HYDROMORPHONE HCL PF IJ INSTILL INTO IMPLANTED PUMP AND INFUSE DIRECTED BY PRESCRIBER. FOR INTRATHECAL USE ONLY. COMPOUNDED DRUG PRODUCT mupirocin (Bactroban) 2 % ointment mupirocin 2 % topical ointment 1 Tube 1 omeprazole (PriLOSEC) [address] capsule Take 1 capsule (20 mg) by mouth in the morning and 1 capsule (20 mg) in the evening. Take before meals. 180 capsule 2 polyethylene glycol, PEG, 3350 (Glycolax) 17 GM/SCOOP powder polyethylene glycol 3350 17 gram/dose oral powder pregabalin (Lyrica) 75 MG capsule TAKE 1 CAPSULE BY MOUTH 4 TIMES DAILY FOR 28 DAYS sulfamethoxazole-trimethoprim (Bactrim DS) 800-160 MG tablet Take 1 tablet by mouth 2 times daily for 7 days. 14 tablet 0 traZODone (Desyrel) 50 MG tablet Take 1 tablet (50 mg) by mouth Nightly. 90 tablet 2 No facility-administered medications prior to visit. Past Medical History: Diagnosis Date Anxiety Bladder cancer ([facility]) Dr. 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 12/07/2018 Family history of diabetes mellitus GERD (gastroesophageal reflux disease) 2013 EGD H/O colonoscopy with polypectomy 03/2018 Hemorrhoids Hypercholesteremia Irritable bowel syndrome Lung nodule Melanosis coli Smoker Social History Socioeconomic History Marital status: Tobacco Use Smoking status: Every Day Packs/day: 0.50 Years: 52.00 Additional pack years: 0.00 Total pack years: 26.00 Types: Cigarettes Start date: 05/08/1971 Smokeless tobacco: Never Vaping Use Vaping Use: Never used Substance and Sexual Activity Alcohol use: No Alcohol/week: 0.0 standard drinks of alcohol Drug use: No Past Surgical History: Procedure Laterality Date BRONCHOSCOPY (HISTORICAL) Right 03/02/2021 enb CARPAL TUNNEL RELEASE CHOLECYSTECTOMY COLONOSCOPY 04/11/2018 polyp removed COLONOSCOPY 09/16/2014 CYSTOSCOPY 04/21/2018 C&P bladder bx CYSTOSCOPY 01/21/2021 CYSTOSCOPY 03/15/2018 CYSTOSCOPY 02/02/2023 HEMORRHOID SURGERY TONSILLECTOMY (HISTORICAL) TOOTH EXTRACTION (HISTORICAL) upper teeth pulled TOTAL ABDOMINAL HYSTERECTOMY W/ BILATERAL SALPINGOOPHORECTOMY UPPER GASTROINTESTINAL ENDOSCOPY 01/2014 EGD with dilitation Past Surgical History: Procedure Laterality Date BRONCHOSCOPY (HISTORICAL) Right 03/02/2021 enb CARPAL TUNNEL RELEASE CHOLECYSTECTOMY COLONOSCOPY 04/11/2018 polyp removed COLONOSCOPY 09/16/2014 CYSTOSCOPY 04/21/2018 C&P bladder bx CYSTOSCOPY 01/21/2021 CYSTOSCOPY 03/15/2018 CYSTOSCOPY 02/02/2023 HEMORRHOID SURGERY TONSILLECTOMY (HISTORICAL) TOOTH EXTRACTION (HISTORICAL) upper teeth pulled TOTAL ABDOMINAL HYSTERECTOMY W/ BILATERAL SALPINGOOPHORECTOMY UPPER GASTROINTESTINAL ENDOSCOPY 01/2014 EGD with dilitation Family History Problem Relation Name Age of Onset Colon cancer Father 68 yrs High Blood Pressure Mother 70's Hyperlipidemia Sister Diabetes Mother 70's High Blood Pressure Sister Heart disease Mother 70's CHF Cancer Father 68 yrs colon ca 67yrs Cancer Mother 70's melanoma Diabetes Sister High Blood Pressure Father 68 yrs Diabetes Father 68 yrs High Blood Pressure Sister Objective BP 95/60 Pulse 70 Ht 5' 3 (1.6 m) Wt 112 lb (50.8 kg) SpO2 97% BMI 19.84 kg/m Physical Exam Vitals and nursing note reviewed. Constitutional: General: She is not in acute distress. Appearance: Normal appearance. She is not ill-appearing. HENT: Head: Normocephalic and atraumatic. Eyes: Conjunctiva/sclera: Conjunctivae normal. Cardiovascular: Rate and Rhythm: Normal rate and regular rhythm. Pulses: Normal pulses. Heart sounds: Normal heart sounds. No murmur heard. No gallop. Pulmonary: Effort: Pulmonary effort is normal. No respiratory distress. Breath sounds: Normal breath sounds. No stridor. No wheezing, rhonchi or rales. Chest: Chest wall: No tenderness. Abdominal: General: There is no distension. Palpations: There is no mass. Tenderness: There is no abdominal tenderness. There is no guarding or rebound. Hernia: No hernia is present. Musculoskeletal: Cervical back: Neck supple. Right lower leg: No edema. Left lower leg: No edema. Neurological: General: No focal deficit present. Mental Status: She is alert and oriented to person, place, and time. Psychiatric: Mood and Affect: Mood normal. Behavior: Behavior normal. Thought Content: Thought content normal. Judgment: Judgment normal. Data Reviewed POCT: Labs: Imaging/Testing: Chart Clean Up: There are no discontinued medications. Rose Marie Cohen DO 10/06/2023 2:41 PM documented in this encounter [facility] 10-05-2023 Emergency department Note EMERGENCY DEPARTMENT ENCOUNTER Pt Name: Jes Collado Birthdate 1955 Date of evaluation: 10/05/2023 ED Provider: Elieser Christianson MD CHIEF COMPLAINT Chief Complaint Patient presents with Abdominal Pain History from patient HISTORY OF PRESENT ILLNESS (Location/Symptom, Timing/Onset, Context/Setting, Quality, Duration, Modifying Factors, Severity) Note limiting factors. I wore appropriate PPE for the entirety of this encounter. HPI Jes Collado is a 68 y.o. who presents to the emergency department complaining of abdominal pain. Patient states that she has been exposed to gastroenteritis at her place of residence. She went to her pain management doctor today for her monthly pain pump refill. While driving home, approximately 1 hour ago, she had sudden onset of sharp severe epigastric and periumbilical abdominal pain. She has never had this before. She has nausea associated with it. No fever chills or injury. Past history of cholecystectomy appendectomy and hysterectomy. Patient also has had burning on urination for the past 4 days. She states that dysuria is the symptoms she presented with when she was diagnosed with bladder cancer. Her last oncology visit was January 2023 and she was cancer free. She is worried about a recurrence. Nursing Notes were reviewed. Limitations to history: None Outside historians: None REVIEW OF SYSTEMS Review of Systems Constitutional: Negative for fever. Eyes: Negative for visual disturbance. Respiratory: Negative for shortness of breath. Cardiovascular: Negative for chest pain. Gastrointestinal: Positive for abdominal pain, diarrhea and nausea. Negative for abdominal distention, anal bleeding, blood in stool, constipation, rectal pain and vomiting. Genitourinary: Positive for difficulty urinating and dysuria. Negative for flank pain, frequency, hematuria, urgency and vaginal discharge. Musculoskeletal: Negative for back pain and neck pain. Skin: Negative for rash. Neurological: Negative for headaches. Pertinent positives and negatives as per HPI PAST MEDICAL HISTORY Past Medical History: Diagnosis Date Anxiety Bladder cancer ([facility]) Dr. Dc Cervical disc disease Chronic pain COPD (chronic obstructive pulmonary disease) ([facility]) 2017 smoker still- CT chest 2019 Degenerative joint disease (DJD) of lumbar spine pain mgt per Dr. 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 12/07/2018 Family history of diabetes mellitus GERD (gastroesophageal reflux disease) 2013 EGD H/O colonoscopy with polypectomy 03/2018 Hemorrhoids Hypercholesteremia Irritable bowel syndrome Lung nodule Melanosis coli Smoker SURGICAL HISTORY Past Surgical History: Procedure Laterality Date BRONCHOSCOPY (HISTORICAL) Right 03/02/2021 enb CARPAL TUNNEL RELEASE CHOLECYSTECTOMY COLONOSCOPY 04/11/2018 polyp removed COLONOSCOPY 09/16/2014 CYSTOSCOPY 04/21/2018 C&P bladder bx CYSTOSCOPY 01/21/2021 CYSTOSCOPY 03/15/2018 CYSTOSCOPY 02/02/2023 HEMORRHOID SURGERY TONSILLECTOMY (HISTORICAL) TOOTH EXTRACTION (HISTORICAL) upper teeth pulled TOTAL ABDOMINAL HYSTERECTOMY W/ BILATERAL SALPINGOOPHORECTOMY UPPER GASTROINTESTINAL ENDOSCOPY 01/2014 EGD with dilitation CURRENT MEDICATIONS Previous Medications ACETAMINOPHEN 500 MG CAPSULE Take by mouth. ALBUTEROL (PROAIR HFA) 108 (90 BASE) MCG/ACT INHALER Inhale 2 puffs every 6 hours as needed for wheezing. BIOTIN BEAUTY EXTRA STRENGTH PO Take by mouth. DICLOFENAC SODIUM (VOLTAREN) 1 % GEL APPLY ONE GRAM TO THE AFFECTED AREA TWO TO THREE TIMES DAILY FLUTICASONE (FLONASE) 50 MCG/ACT NASAL SPRAY USE 2 SPRAY(S) IN EACH NOSTRIL ONCE DAILY HYDROMORPHONE (DILAUDID) 4 MG/ML INJECTION by Other route. MUPIROCIN (BACTROBAN) 2 % OINTMENT mupirocin 2 % topical ointment OMEPRAZOLE (PRILOSEC) [address] CAPSULE Take 1 capsule (20 mg) by mouth in the morning and 1 capsule (20 mg) in the evening. Take before meals. POLYETHYLENE GLYCOL, PEG, 3350 (GLYCOLAX) 17 GM/SCOOP POWDER polyethylene glycol 3350 17 gram/dose oral powder PREGABALIN (LYRICA) 75 MG CAPSULE TAKE 1 CAPSULE BY MOUTH 4 TIMES DAILY FOR 28 DAYS TRAZODONE (DESYREL) 50 MG TABLET Take 1 tablet (50 mg) by mouth Nightly. ALLERGIES Bacitracin, Cephalexin, Ciprofloxacin hcl, Germanium, Neomycin, Pneumococcal vaccine, Polymyxin b, Bsc-vxamd-ewxv-lidocaine, Neomycin-bacitracin zn-polymyx, and Lxvhgnzv-efvavmnvd-jzlvmbrsua FAMILY HISTORY Family History Problem Relation Name Age of Onset Colon cancer Father 68 yrs High Blood Pressure Mother 70's Hyperlipidemia Sister Diabetes Mother 70's High Blood Pressure Sister Heart disease Mother 70's CHF Cancer Father 68 yrs colon ca 67yrs Cancer Mother 70's melanoma Diabetes Sister High Blood Pressure Father 68 yrs Diabetes Father 68 yrs High Blood Pressure Sister SOCIAL HISTORY Social History Socioeconomic History Marital status: Tobacco Use Smoking status: Every Day Packs/day: 0.50 Years: 52.00 Additional pack years: 0.00 Total pack years: 26.00 Types: Cigarettes Start date: 05/08/1971 Smokeless tobacco: Never Vaping Use Vaping Use: Never used Substance and Sexual Activity Alcohol use: No Alcohol/week: 0.0 standard drinks of alcohol Drug use: No SCREENINGS PHYSICAL EXAM ED Triage Vitals [10/05/23 1510] Temp Heart Rate Resp BP -- 76 14 (!) 152/76 SpO2 Temp src Heart Rate Source Patient Position 100 % -- -- Lying BP Location FiO2 (%) Right arm -- Physical Exam Constitutional: Appearance: She is well-developed. HENT: Head: Normocephalic and atraumatic. Mouth/Throat: Mouth: Mucous membranes are moist. Eyes: Extraocular Movements: Extraocular movements intact. Pupils: Pupils are equal, round, and reactive to light. Cardiovascular: Rate and Rhythm: Normal rate and regular rhythm. Heart sounds: Normal heart sounds. Pulmonary: Effort: Pulmonary effort is normal. Breath sounds: No wheezing or rhonchi. Skin: General: Skin is warm and dry. Capillary Refill: Capillary refill takes less than 2 seconds. Neurological: General: No focal deficit present. Mental Status: She is alert. Abdomen -soft, mild diffuse tenderness, no Pickering sign, no McBurney point tenderness, no peritoneal signs, no organomegaly, palpable pain pump DIAGNOSTIC RESULTS RADIOLOGY (Per Emergency Physician): Abdominal CT - no acute process Interpretation per the Radiologist below, if available at the time of this note: CT abdomen pelvis w contrast Final Result There is mild decreased density surrounding the portal triads of the liver. This may reflect periportal edema. No focal hepatic lesions are seen. There is no biliary dilatation. 13 mm cystic structure within the pancreatic tail is stable compared to a CT from 10/03/2020. Left renal cyst. Report Dictated on Electronically Signed By: Chava Arizmendi MD Electronically Signed Date/Time: 10/05/2023 4:32 PM EST LABS: Labs Reviewed BASIC METABOLIC PANEL - Abnormal Result Value SODIUM 139 POTASSIUM 4.5 CHLORIDE 104 CARBON DIOXIDE 29 UREA NITROGEN 18 (*) CREATININE 0.63 GLUCOSE 123 (*) CALCIUM 9.0 ANION GAP 5 eGFR >90.0 HEPATIC FUNCTION PANEL - Abnormal BILIRUBIN, TOTAL 0.4 BILIRUBIN, DIRECT 0.0 ALKALINE PHOSPHATASE 69 AST (SGOT) 47 (*) ALT 20 ALBUMIN 4.0 TOTAL PROTEIN 6.6 CBC WITH AUTO DIFFERENTIAL - Abnormal Auto WBC 6.9 RBC 4.09 Hemoglobin 13.1 Hematocrit 39.1 MCV 95.6 MCH 32.0 MCHC 33.5 RDW 13.2 Platelets 149 MPV 12.4 Neutrophils Relative 76.3 Lymphocytes Relative 15.9 (*) Monocytes Relative 5.6 Eosinophils Relative 1.2 Basophils Relative 0.6 Immature Grans % 0.4 (*) Neutrophils Absolute 5.3 Lymphocytes Absolute 1.1 Monocytes Absolute 0.4 Eosinophils Absolute 0.1 Basophils Absolute 0.0 Immature Grans Absolute 0.0 COMPLETE URINALYSIS - Abnormal Color, Urine Yellow Clarity, Urine Clear pH, Urine 5.5 Leukocytes, Urine Negative Nitrite, Urine Negative Protein, Urine 20 (*) Glucose, Urine Normal Bilirubin, Urine Negative Ketones, Urine Negative Urobilinogen, Urine 3 (*) Blood, Urine 0.2 (*) Volume, Urine 12 mL RBC, Urine 6-10 (*) WBC, Urine 0-2 Squamous Epithelial, Urine 0-2 SPECIFIC GRAVITY OF URINE (NUMERIC) 1.033 (*) LIPASE - Normal LIPASE 26 COMPLETE URINALYSIS WITH REFLEX TO CULTURE Narrative: The following orders were created for panel order Urinalysis complete with reflex to Culture. Procedure Abnormality Status --------- ------ Complete Urinalysis[[id number]] Abnormal Final result Please view results for these tests on the individual orders. All other labs were within normal range or not returned as of this dictation. EMERGENCY DEPARTMENT COURSE and DIFFERENTIAL DIAGNOSIS/MDM: Vitals: Vitals: 10/05/23 1510 BP: (!) 152/76 BP Location: Right arm Patient Position: Lying Pulse: 76 Resp: 14 SpO2: 100% Weight: 49.4 kg (109 lb) Medications sodium chloride 0.9 % bolus 1,000 mL (1,000 mL IntraVENous New Bag 10/05/23 1524) ondansetron (Zofran) injection 4 mg (4 mg IntraVENous Given 10/05/23 1524) HYDROmorphone (Dilaudid) injection 0.5 mg (0.5 mg IntraVENous Given 10/05/23 1524) Medical Decision Making and ED Course The patient presented with a chief complaint of abdominal pain. The differential diagnosis associated with this patient's presentation includes urinary tract infection bowel obstruction bowel perforation recurrent bladder cancer. Our workup consisted of ordering/reviewing laboratory studies and imaging. Laboratory studies showed no clinically significant electrolyte abnormality no renal sufficiency no hepatic inflammation or pancreatitis. There is no anemia. She does have some red blood cells in her urine which could be consistent with an early urinary tract infection. She states that this is how her urinary tract infections presents and that she is successfully treated with Bactrim which I will provide. Imaging shows no evidence of perforation obstruction or ischemia. Acute abdomen instructions reviewed. There is no evidence of recurrent bladder cancer. Patient agrees with symptomatic treatment and PCP follow-up as an outpatient. Diagnostic tests and medications considered but not ordered: CT angio abdomen to rule out abdominal ischemia not indicated because patient has controllable pain and no evidence of acidosis. Independent test interpretation by me: Abdominal CT Chronic conditions impacting care: Bladder cancer, pain pump for chronic pain, multiple previous surgeries which put her at risk factor for obstruction intestinal Social determinants of health affecting care: Smokes tobacco ED Medications managed: Symptoms improved with analgesics Consideration of hospitalization or de-escalation of care: Stable vital signs and nonsurgical abdomen make her not a candidate for hospitalization REVAL: 4:39 PM All data now available and reviewed with patient. Pain Improved. Has a ride home FINAL IMPRESSION 1. Abdominal pain, generalized 2. Urinary tract infection in female DISPOSITION Discharge 10/05/2023 04:48:51 PM PATIENT REFERRED TO: Rose Marie Cohen DO [address] [place], [place] [id number] In 1 week Marck Dc MD [address] [place] [address] [address] [facility] [address] As needed, your urologist DISCHARGE MEDICATIONS: New Prescriptions SULFAMETHOXAZOLE-TRIMETHOPRIM (BACTRIM DS) 800-160 MG TABLET Take 1 tablet by mouth 2 times daily for 7 days. (Comment: Please note this report has been produced using speech recognition software and may contain errors related to that system including errors in grammar, punctuation, and spelling, as well as words and phrases that may be inappropriate. If there are any questions or concerns please feel free to contact the dictating provider for clarification.) Elieser Christianson MD (electronically signed) Emergency Medicine Provider Elieser Christianson MD 10/05/23 1738 Pt ambulatory to room 3 with c/o abdominal pain. Pt states pain was a sudden onset 1 hour prior that occurred while driving and returning home from having a pain pump refilled.. Pt describes pain as sharp constant pressure with no modifying factors. Pt denies any nausea, vomiting, diarrhea or constipation. documented in this encounter [facility] 10-05-2023 Emergency department Triage note Pt ambulatory to room 3 with c/o abdominal pain. Pt states pain was a sudden onset 1 hour prior that occurred while driving and returning home from having a pain pump refilled.. Pt describes pain as sharp constant pressure with no modifying factors. Pt denies any nausea, vomiting, diarrhea or constipation. [facility] 10-05-2023 Physician Emergency department Note EMERGENCY DEPARTMENT ENCOUNTER Pt Name: Jes Collado Birthdate 1955 Date of evaluation: 10/05/2023 ED Provider: Elieser Christianson MD CHIEF COMPLAINT Chief Complaint Patient presents with Abdominal Pain History from patient HISTORY OF PRESENT ILLNESS (Location/Symptom, Timing/Onset, Context/Setting, Quality, Duration, Modifying Factors, Severity) Note limiting factors. I wore appropriate PPE for the entirety of this encounter. HPI Jes Collado is a 68 y.o. who presents to the emergency department complaining of abdominal pain. Patient states that she has been exposed to gastroenteritis at her place of residence. She went to her pain management doctor today for her monthly pain pump refill. While driving home, approximately 1 hour ago, she had sudden onset of sharp severe epigastric and periumbilical abdominal pain. She has never had this before. She has nausea associated with it. No fever chills or injury. Past history of cholecystectomy appendectomy and hysterectomy. Patient also has had burning on urination for the past 4 days. She states that dysuria is the symptoms she presented with when she was diagnosed with bladder cancer. Her last oncology visit was January 2023 and she was cancer free. She is worried about a recurrence. Nursing Notes were reviewed. Limitations to history: None Outside historians: None REVIEW OF SYSTEMS Review of Systems Constitutional: Negative for fever. Eyes: Negative for visual disturbance. Respiratory: Negative for shortness of breath. Cardiovascular: Negative for chest pain. Gastrointestinal: Positive for abdominal pain, diarrhea and nausea. Negative for abdominal distention, anal bleeding, blood in stool, constipation, rectal pain and vomiting. Genitourinary: Positive for difficulty urinating and dysuria. Negative for flank pain, frequency, hematuria, urgency and vaginal discharge. Musculoskeletal: Negative for back pain and neck pain. Skin: Negative for rash. Neurological: Negative for headaches. Pertinent positives and negatives as per HPI PAST MEDICAL HISTORY Past Medical History: Diagnosis Date Anxiety Bladder cancer ([facility]) Dr. Dc Cervical disc disease Chronic pain COPD (chronic obstructive pulmonary disease) ([facility]) 2017 smoker still- CT chest 2018 Degenerative joint disease (DJD) of lumbar spine pain mgt per Dr. 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 12/07/2018 Family history of diabetes mellitus GERD (gastroesophageal reflux disease) 2013 EGD H/O colonoscopy with polypectomy 03/2018 Hemorrhoids Hypercholesteremia Irritable bowel syndrome Lung nodule Melanosis coli Smoker SURGICAL HISTORY Past Surgical History: Procedure Laterality Date BRONCHOSCOPY (HISTORICAL) Right 03/02/2021 enb CARPAL TUNNEL RELEASE CHOLECYSTECTOMY COLONOSCOPY 04/11/2018 polyp removed COLONOSCOPY 09/16/2014 CYSTOSCOPY 04/21/2018 C&P bladder bx CYSTOSCOPY 01/21/2021 CYSTOSCOPY 03/15/2018 CYSTOSCOPY 02/02/2023 HEMORRHOID SURGERY TONSILLECTOMY (HISTORICAL) TOOTH EXTRACTION (HISTORICAL) upper teeth pulled TOTAL ABDOMINAL HYSTERECTOMY W/ BILATERAL SALPINGOOPHORECTOMY UPPER GASTROINTESTINAL ENDOSCOPY 01/2014 EGD with dilitation CURRENT MEDICATIONS Previous Medications ACETAMINOPHEN 500 MG CAPSULE Take by mouth. ALBUTEROL (PROAIR HFA) 108 (90 BASE) MCG/ACT INHALER Inhale 2 puffs every 6 hours as needed for wheezing. BIOTIN BEAUTY EXTRA STRENGTH PO Take by mouth. DICLOFENAC SODIUM (VOLTAREN) 1 % GEL APPLY ONE GRAM TO THE AFFECTED AREA TWO TO THREE TIMES DAILY FLUTICASONE (FLONASE) 50 MCG/ACT NASAL SPRAY USE 2 SPRAY(S) IN EACH NOSTRIL ONCE DAILY HYDROMORPHONE (DILAUDID) 4 MG/ML INJECTION by Other route. MUPIROCIN (BACTROBAN) 2 % OINTMENT mupirocin 2 % topical ointment OMEPRAZOLE (PRILOSEC) [address] CAPSULE Take 1 capsule (20 mg) by mouth in the morning and 1 capsule (20 mg) in the evening. Take before meals. POLYETHYLENE GLYCOL, PEG, 3350 (GLYCOLAX) 17 GM/SCOOP POWDER polyethylene glycol 3350 17 gram/dose oral powder PREGABALIN (LYRICA) 75 MG CAPSULE TAKE 1 CAPSULE BY MOUTH 4 TIMES DAILY FOR 28 DAYS TRAZODONE (DESYREL) 50 MG TABLET Take 1 tablet (50 mg) by mouth Nightly. ALLERGIES Bacitracin, Cephalexin, Ciprofloxacin hcl, Germanium, Neomycin, Pneumococcal vaccine, Polymyxin b, Lwn-pamwy-hwlh-lidocaine, Neomycin-bacitracin zn-polymyx, and Wbgqouxo-lymftfqks-doajkkkpsp FAMILY HISTORY Family History Problem Relation Name Age of Onset Colon cancer Father 68 yrs High Blood Pressure Mother 70's Hyperlipidemia Sister Diabetes Mother 70's High Blood Pressure Sister Heart disease Mother 70's CHF Cancer Father 68 yrs colon ca 67yrs Cancer Mother 70's melanoma Diabetes Sister High Blood Pressure Father 68 yrs Diabetes Father 68 yrs High Blood Pressure Sister SOCIAL HISTORY Social History Socioeconomic History Marital status: Tobacco Use Smoking status: Every Day Packs/day: 0.50 Years: 52.00 Additional pack years: 0.00 Total pack years: 26.00 Types: Cigarettes Start date: 05/08/1971 Smokeless tobacco: Never Vaping Use Vaping Use: Never used Substance and Sexual Activity Alcohol use: No Alcohol/week: 0.0 standard drinks of alcohol Drug use: No SCREENINGS PHYSICAL EXAM ED Triage Vitals [10/05/23 1510] Temp Heart Rate Resp BP -- 76 14 (!) 152/76 SpO2 Temp src Heart Rate Source Patient Position 100 % -- -- Lying BP Location FiO2 (%) Right arm -- Physical Exam Constitutional: Appearance: She is well-developed. HENT: Head: Normocephalic and atraumatic. Mouth/Throat: Mouth: Mucous membranes are moist. Eyes: Extraocular Movements: Extraocular movements intact. Pupils: Pupils are equal, round, and reactive to light. Cardiovascular: Rate and Rhythm: Normal rate and regular rhythm. Heart sounds: Normal heart sounds. Pulmonary: Effort: Pulmonary effort is normal. Breath sounds: No wheezing or rhonchi. Skin: General: Skin is warm and dry. Capillary Refill: Capillary refill takes less than 2 seconds. Neurological: General: No focal deficit present. Mental Status: She is alert. Abdomen -soft, mild diffuse tenderness, no Pickering sign, no McBurney point tenderness, no peritoneal signs, no organomegaly, palpable pain pump DIAGNOSTIC RESULTS RADIOLOGY (Per Emergency Physician): Abdominal CT - no acute process Interpretation per the Radiologist below, if available at the time of this note: CT abdomen pelvis w contrast Final Result There is mild decreased density surrounding the portal triads of the liver. This may reflect periportal edema. No focal hepatic lesions are seen. There is no biliary dilatation. 13 mm cystic structure within the pancreatic tail is stable compared to a CT from 10/03/2020. Left renal cyst. Report Dictated on Electronically Signed By: Chava Arizmendi MD Electronically Signed Date/Time: 10/05/2023 4:32 PM EST LABS: Labs Reviewed BASIC METABOLIC PANEL - Abnormal Result Value SODIUM 139 POTASSIUM 4.5 CHLORIDE 104 CARBON DIOXIDE 29 UREA NITROGEN 18 (*) CREATININE 0.63 GLUCOSE 123 (*) CALCIUM 9.0 ANION GAP 5 eGFR >90.0 HEPATIC FUNCTION PANEL - Abnormal BILIRUBIN, TOTAL 0.4 BILIRUBIN, DIRECT 0.0 ALKALINE PHOSPHATASE 69 AST (SGOT) 47 (*) ALT 20 ALBUMIN 4.0 TOTAL PROTEIN 6.6 CBC WITH AUTO DIFFERENTIAL - Abnormal Auto WBC 6.9 RBC 4.09 Hemoglobin 13.1 Hematocrit 39.1 MCV 95.6 MCH 32.0 MCHC 33.5 RDW 13.2 Platelets 149 MPV 12.4 Neutrophils Relative 76.3 Lymphocytes Relative 15.9 (*) Monocytes Relative 5.6 Eosinophils Relative 1.2 Basophils Relative 0.6 Immature Grans % 0.4 (*) Neutrophils Absolute 5.3 Lymphocytes Absolute 1.1 Monocytes Absolute 0.4 Eosinophils Absolute 0.1 Basophils Absolute 0.0 Immature Grans Absolute 0.0 COMPLETE URINALYSIS - Abnormal Color, Urine Yellow Clarity, Urine Clear pH, Urine 5.5 Leukocytes, Urine Negative Nitrite, Urine Negative Protein, Urine 20 (*) Glucose, Urine Normal Bilirubin, Urine Negative Ketones, Urine Negative Urobilinogen, Urine 3 (*) Blood, Urine 0.2 (*) Volume, Urine 12 mL RBC, Urine 6-10 (*) WBC, Urine 0-2 Squamous Epithelial, Urine 0-2 SPECIFIC GRAVITY OF URINE (NUMERIC) 1.033 (*) LIPASE - Normal LIPASE 26 COMPLETE URINALYSIS WITH REFLEX TO CULTURE Narrative: The following orders were created for panel order Urinalysis complete with reflex to Culture. Procedure Abnormality Status --------- ------ Complete Urinalysis[[id number]] Abnormal Final result Please view results for these tests on the individual orders. All other labs were within normal range or not returned as of this dictation. EMERGENCY DEPARTMENT COURSE and DIFFERENTIAL DIAGNOSIS/MDM: Vitals: Vitals: 10/05/23 1510 BP: (!) 152/76 BP Location: Right arm Patient Position: Lying Pulse: 76 Resp: 14 SpO2: 100% Weight: 49.4 kg (109 lb) Medications sodium chloride 0.9 % bolus 1,000 mL (1,000 mL IntraVENous New Bag 10/05/23 1524) ondansetron (Zofran) injection 4 mg (4 mg IntraVENous Given 10/05/23 1524) HYDROmorphone (Dilaudid) injection 0.5 mg (0.5 mg IntraVENous Given 10/05/23 1524) Medical Decision Making and ED Course The patient presented with a chief complaint of abdominal pain. The differential diagnosis associated with this patient's presentation includes urinary tract infection bowel obstruction bowel perforation recurrent bladder cancer. Our workup consisted of ordering/reviewing laboratory studies and imaging. Laboratory studies showed no clinically significant electrolyte abnormality no renal sufficiency no hepatic inflammation or pancreatitis. There is no anemia. She does have some red blood cells in her urine which could be consistent with an early urinary tract infection. She states that this is how her urinary tract infections presents and that she is successfully treated with Bactrim which I will provide. Imaging shows no evidence of perforation obstruction or ischemia. Acute abdomen instructions reviewed. There is no evidence of recurrent bladder cancer. Patient agrees with symptomatic treatment and PCP follow-up as an outpatient. Diagnostic tests and medications considered but not ordered: CT angio abdomen to rule out abdominal ischemia not indicated because patient has controllable pain and no evidence of acidosis. Independent test interpretation by me: Abdominal CT Chronic conditions impacting care: Bladder cancer, pain pump for chronic pain, multiple previous surgeries which put her at risk factor for obstruction intestinal Social determinants of health affecting care: Smokes tobacco ED Medications managed: Symptoms improved with analgesics Consideration of hospitalization or de-escalation of care: Stable vital signs and nonsurgical abdomen make her not a candidate for hospitalization REVAL: 4:39 PM All data now available and reviewed with patient. Pain Improved. Has a ride home FINAL IMPRESSION 1. Abdominal pain, generalized 2. Urinary tract infection in female DISPOSITION Discharge 10/05/2023 04:48:51 PM PATIENT REFERRED TO: Rose Marie Cohen DO [address] [facility] [address] [place] [address] In 1 week Marck Dc MD [address] [place] [address] [address] [place] [address] As needed, your urologist DISCHARGE MEDICATIONS: New Prescriptions SULFAMETHOXAZOLE-TRIMETHOPRIM (BACTRIM DS) 800-160 MG TABLET Take 1 tablet by mouth 2 times daily for 7 days. (Comment: Please note this report has been produced using speech recognition software and may contain errors related to that system including errors in grammar, punctuation, and spelling, as well as words and phrases that may be inappropriate. If there are any questions or concerns please feel free to contact the dictating provider for clarification.) Elieser Christianson MD (electronically signed) Emergency Medicine Provider Elieser Christianson MD 10/05/23 1738 [facility] 09-12-2023 Telephone encounter Note ordered [facility] 09-12-2023 Miscellaneous Notes ordered Message released to patient as written. LVM Pt is due for annual CT Lung Screen. Is patient in agreement to have screen ? Let us know so Dr Cohen can order it and it will need prior auth'd Patient's further questions if applicable: Pt states Yes Were all questions from office addressed or relayed to the patient from encounter: Yes documented in this encounter [facility] 09-12-2023 Telephone encounter Note Batsheva Ordonez 3 days ago [place] Message released to patient as written. LVM Pt is due for annual CT Lung Screen. Is patient in agreement to have screen ? Let us know so Dr Cohen can order it and it will need prior auth'd Patient's further questions if applicable: Pt states Yes Were all questions from office addressed or relayed to the patient from encounter: Yes [facility] 09-12-2023 Miscellaneous Notes Batsheva Ordonez 3 days ago [place] Message released to patient as written. LVM Pt is due for annual CT Lung Screen. Is patient in agreement to have screen ? Let us know so Dr Cohen can order it and it will need prior auth'd Patient's further questions if applicable: Pt states Yes Were all questions from office addressed or relayed to the patient from encounter: Yes LVM Pt is due for annual CT Lung Screen. Is patient in agreement to have screen ? Let us know so Dr Cohen can order it and it will need prior auth'd Would recommend CT lung screen This patient has had a prior lung screening CT scan at [facility]. According to our records, he/she is now due for an annual lung screening CT scan. Please evaluate and order this annual screening if your patient still meets lung screening criteria. documented in this encounter [facility] 09-09-2023 Telephone encounter Note Message released to patient as written. LVM Pt is due for annual CT Lung Screen. Is patient in agreement to have screen ? Let us know so Dr Cohen can order it and it will need prior auth'd Patient's further questions if applicable: Pt states Yes Were all questions from office addressed or relayed to the patient from encounter: Yes [facility] 09-09-2023 Telephone encounter Note LVM Pt is due for annual CT Lung Screen. Is patient in agreement to have screen ? Let us know so Dr Cohen can order it and it will need prior auth'd [facility] 09-08-2023 Telephone encounter Note Would recommend CT lung screen [facility] 09-08-2023 Telephone encounter Note This patient has had a prior lung screening CT scan at [facility]. According to our records, he/she is now due for an annual lung screening CT scan. Please evaluate and order this annual screening if your patient still meets lung screening criteria. [facility] 08-15-2023 Miscellaneous Notes Medication name: fluticasone (Flonase) 50 MCG/ACT nasal spray Medication dosage: 50 MCG/ACT Monthly quantity needed: Does not say How many day supply requesting: Does not say Medication route: As Directed Medication administration time(s): USE 2 SPRAY(S) IN EACH NOSTRIL ONCE DAILY If taking medication PRN, reason for taking medication: If this is a controlled substance do you receive this or any other controlled medication from any other doctor or facility: N/A Ordering provider: Dr. Cohen Date of last office visit: 06/15/23 Date of next office visit: None Scheduled Date of last refill: (see medication tab): 03/17/23 Updated/Validated preferred pharmacy: Yes Patient instructed to contact the pharmacy prior to picking up the medication: No documented in this encounter [facility] 08-15-2023 Telephone encounter Note Medication name: fluticasone (Flonase) 50 MCG/ACT nasal spray Medication dosage: 50 MCG/ACT Monthly quantity needed: Does not say How many day supply requesting: Does not say Medication route: As Directed Medication administration time(s): USE 2 SPRAY(S) IN EACH NOSTRIL ONCE DAILY If taking medication PRN, reason for taking medication: If this is a controlled substance do you receive this or any other controlled medication from any other doctor or facility: N/A Ordering provider: Dr. Cohen Date of last office visit: 06/15/23 Date of next office visit: None Scheduled Date of last refill: (see medication tab): 03/17/23 Updated/Validated preferred pharmacy: Yes Patient instructed to contact the pharmacy prior to picking up the medication: No [facility] 07-06-2023 Telephone encounter Note Sent [facility] 07-06-2023 Miscellaneous Notes Sent Lv 07/01/2023 [place] None Pt stopped by and is asking for antibiotic ointment sent in to her pharmacy [facility]. She tore a piece of skin on her right arm. Said Dr Sprague had given her a Rx in the past. documented in this encounter [facility] 07-06-2023 Telephone encounter Note Lv 07/01/2023 [place] None [facility] 07-06-2023 Telephone encounter Note Pt stopped by and is asking for antibiotic ointment sent in to her pharmacy [facility]. She tore a piece of skin on her right arm. Said Dr Sprague had given her a Rx in the past. [facility] 06-15-2023 History of Present illness Narrative Images from the original note were not included. [facility] [address] [facility] [id number] Visit type: Established Patient Reason for Visit: Cough, UTI, and Abrasion (Left arm ) Assessment and Plan Diagnoses and all orders for this visit: COPD exacerbation (HCC) - predniSONE (Deltasone) 20 MG tablet; Take 2 tablets (40 mg) by mouth daily for 5 days. Dysuria - Urine culture (clean catch); Future - AMB POC URINALYSIS DIP STICK AUTO W/O MICRO Screening, lipid - Lipid panel; Future Screening for diabetes mellitus - Hemoglobin A1c; Future Dizziness - Basic metabolic panel; Future - CBC; Future - Hemoglobin A1c; Future Need for hepatitis C screening test - Hepatitis C antibody; Future Skin tear of forearm without complication, left, initial encounter - silver sulfADIAZINE (Silvadene) 1 % cream; Apply to affected area twice a day or with each dressing change. No follow-ups on file. Subjective HPI Has had a cough for a couple weeks Has SOB but no worse than normal No fevers or chills No wheezing Took cough medicine and this helped She has urinary urgency - its a dribble when she goes Has bladder cancer Has a skin tear on her L arm She has dizziness - is on lyrica, has a pump, is concerned about dehydration Worse with turning her head or getting out of bed C/o b/l LE swelling Review of Systems Constitutional: Negative for appetite change, chills, fatigue and fever. Respiratory: Positive for cough. Negative for shortness of breath and wheezing. Cardiovascular: Positive for leg swelling. Negative for chest pain and palpitations. Genitourinary: Negative. Skin: Positive for wound. Neurological: Positive for dizziness. Allergies Allergen Reactions Bacitracin Other reaction(s): rash, itcing, U Cephalexin Other reaction(s): GI Upset Other reaction(s): GI Upset Ciprofloxacin Hcl Other reaction(s): Unknown Other reaction(s): Unknown Germanium Nausea Only Other reaction(s): GI Upset Can tolerate AZO Other reaction(s): GI Upset Can tolerate AZO Can tolerate AZO Neomycin Other reaction(s): rash, itcing, U Pneumococcal Vaccine Swelling and redness Polymyxin B Other reaction(s): rash, itcing, U Shm-Tnsjc-Pkem-Lidocaine Rash Other reaction(s): Unknown Other reaction(s): Unknown Other reaction(s): Unknown Neomycin-Bacitracin Zn-Polymyx Rash Mzvfvsvo-Eukatjaua-Zzrtkqvhcd Rash Outpatient Medications Prior to Visit Medication Sig Dispense Refill Acetaminophen 500 MG capsule Take by mouth. albuterol 108 (90 Base) MCG/ACT inhaler Inhale 2 puffs every 4 hours as needed for wheezing. 18 g 3 BIOTIN BEAUTY EXTRA STRENGTH PO Take by mouth. Diclofenac Sodium (Voltaren) 1 % gel APPLY ONE GRAM TO THE AFFECTED AREA TWO TO THREE TIMES DAILY fluticasone (Flonase) 50 MCG/ACT nasal spray USE 2 SPRAY(S) IN EACH NOSTRIL ONCE DAILY 16 g 3 HYDROmorphone (Dilaudid) 4 MG/ML injection by Other route. mupirocin (Bactroban) 2 % ointment mupirocin 2 % topical ointment omeprazole (PriLOSEC) [address] capsule Take 1 capsule (20 mg) by mouth in the morning and 1 capsule (20 mg) in the evening. Take before meals. 180 capsule 2 polyethylene glycol, PEG, 3350 (Glycolax) 17 GM/SCOOP powder polyethylene glycol 3350 17 gram/dose oral powder pregabalin (Lyrica) 75 MG capsule TAKE 1 CAPSULE BY MOUTH 4 TIMES DAILY FOR 28 DAYS traZODone (Desyrel) 50 MG tablet Take 1 tablet (50 mg) by mouth Nightly. 90 tablet 2 No facility-administered medications prior to visit. Past Medical History: Diagnosis Date Anxiety Bladder cancer ([facility]) Dr. Dc Cervical disc disease Chronic pain COPD (chronic obstructive pulmonary disease) ([facility]) 2016 smoker still- CT chest 2019 Degenerative joint disease (DJD) of lumbar spine pain mgt per Dr. 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 12/07/2018 Family history of diabetes mellitus GERD (gastroesophageal reflux disease) 2013 EGD H/O colonoscopy with polypectomy 03/2018 Hemorrhoids Hypercholesteremia Irritable bowel syndrome Lung nodule Melanosis coli Smoker Social History Socioeconomic History Marital status: Tobacco Use Smoking status: Every Day Packs/day: 0.50 Years: 52.00 Pack years: 26.00 Types: Cigarettes Start date: 05/08/1971 Smokeless tobacco: Never Vaping Use Vaping Use: Never used Substance and Sexual Activity Alcohol use: No Alcohol/week: 0.0 standard drinks of alcohol Drug use: No Past Surgical History: Procedure Laterality Date BRONCHOSCOPY (HISTORICAL) Right 03/02/2021 enb CARPAL TUNNEL RELEASE CHOLECYSTECTOMY COLONOSCOPY 04/11/2018 polyp removed COLONOSCOPY 09/16/2014 CYSTOSCOPY 04/21/2018 C&P bladder bx CYSTOSCOPY 01/21/2021 CYSTOSCOPY 03/15/2018 CYSTOSCOPY 02/02/2023 HEMORRHOID SURGERY TONSILLECTOMY (HISTORICAL) TOOTH EXTRACTION (HISTORICAL) upper teeth pulled TOTAL ABDOMINAL HYSTERECTOMY W/ BILATERAL SALPINGOOPHORECTOMY UPPER GASTROINTESTINAL ENDOSCOPY 01/2014 EGD with dilitation Past Surgical History: Procedure Laterality Date BRONCHOSCOPY (HISTORICAL) Right 03/02/2021 enb CARPAL TUNNEL RELEASE CHOLECYSTECTOMY COLONOSCOPY 04/11/2018 polyp removed COLONOSCOPY 09/16/2014 CYSTOSCOPY 04/21/2018 C&P bladder bx CYSTOSCOPY 01/21/2021 CYSTOSCOPY 03/15/2018 CYSTOSCOPY 02/02/2023 HEMORRHOID SURGERY TONSILLECTOMY (HISTORICAL) TOOTH EXTRACTION (HISTORICAL) upper teeth pulled TOTAL ABDOMINAL HYSTERECTOMY W/ BILATERAL SALPINGOOPHORECTOMY UPPER GASTROINTESTINAL ENDOSCOPY 01/2014 EGD with dilitation Family History Problem Relation Name Age of Onset Colon cancer Father 68 yrs High Blood Pressure Mother 70's Hyperlipidemia Sister Diabetes Mother 70's High Blood Pressure Sister Heart disease Mother 70's CHF Cancer Father 68 yrs colon ca 67yrs Cancer Mother 70's melanoma Diabetes Sister High Blood Pressure Father 68 yrs Diabetes Father 68 yrs High Blood Pressure Sister Objective BP 98/64 Pulse 74 Temp 36.5 C (97.7 F) Ht 5' 3 (1.6 m) Wt 111 lb 3.2 oz (50.4 kg) SpO2 99% BMI 19.70 kg/m Physical Exam Vitals and nursing note reviewed. Constitutional: General: She is not in acute distress. Appearance: Normal appearance. She is not ill-appearing. HENT: Head: Normocephalic and atraumatic. Eyes: Conjunctiva/sclera: Conjunctivae normal. Cardiovascular: Rate and Rhythm: Normal rate and regular rhythm. Pulses: Normal pulses. Heart sounds: Normal heart sounds. No murmur heard. No gallop. Pulmonary: Effort: Pulmonary effort is normal. No respiratory distress. Breath sounds: Normal breath sounds. No stridor. No wheezing, rhonchi or rales. Chest: Chest wall: No tenderness. Musculoskeletal: Cervical back: Neck supple. Right lower leg: No edema. Left lower leg: No edema. Skin: Comments: Large skin tear of the L forearm with surrounding ecchymosis and erythema Neurological: General: No focal deficit present. Mental Status: She is alert and oriented to person, place, and time. Psychiatric: Mood and Affect: Mood normal. Behavior: Behavior normal. Thought Content: Thought content normal. Judgment: Judgment normal. Data Reviewed POCT: Labs: Imaging/Testing: Chart Clean Up: There are no discontinued medications. Rose Marie Cohen DO 06/15/2023 3:49 PM documented in this encounter [facility] 06-15-2023 History of Present illness Narrative Images from the original note were not included. [facility] [address] [place] [address] Visit type: Established Patient Reason for Visit: Cough, UTI, and Abrasion (Left arm ) Assessment and Plan Diagnoses and all orders for this visit: COPD exacerbation (HCC) - predniSONE (Deltasone) 20 MG tablet; Take 2 tablets (40 mg) by mouth daily for 5 days. Dysuria - Urine culture (clean catch); Future - AMB POC URINALYSIS DIP STICK AUTO W/O MICRO Screening, lipid - Lipid panel; Future Screening for diabetes mellitus - Hemoglobin A1c; Future Dizziness - Basic metabolic panel; Future - CBC; Future - Hemoglobin A1c; Future Need for hepatitis C screening test - Hepatitis C antibody; Future Skin tear of forearm without complication, left, initial encounter - silver sulfADIAZINE (Silvadene) 1 % cream; Apply to affected area twice a day or with each dressing change. No follow-ups on file. Subjective HPI Has had a cough for a couple weeks Has SOB but no worse than normal No fevers or chills No wheezing Took cough medicine and this helped She has urinary urgency - its a dribble when she goes Has bladder cancer Has a skin tear on her L arm She has dizziness - is on lyrica, has a pump, is concerned about dehydration Worse with turning her head or getting out of bed C/o b/l LE swelling Review of Systems Constitutional: Negative for appetite change, chills, fatigue and fever. Respiratory: Positive for cough. Negative for shortness of breath and wheezing. Cardiovascular: Positive for leg swelling. Negative for chest pain and palpitations. Genitourinary: Negative. Skin: Positive for wound. Neurological: Positive for dizziness. Allergies Allergen Reactions Bacitracin Other reaction(s): rash, itcing, U Cephalexin Other reaction(s): GI Upset Other reaction(s): GI Upset Ciprofloxacin Hcl Other reaction(s): Unknown Other reaction(s): Unknown Germanium Nausea Only Other reaction(s): GI Upset Can tolerate AZO Other reaction(s): GI Upset Can tolerate AZO Can tolerate AZO Neomycin Other reaction(s): rash, itcing, U Pneumococcal Vaccine Swelling and redness Polymyxin B Other reaction(s): rash, itcing, U Jun-Qttid-Pxvl-Lidocaine Rash Other reaction(s): Unknown Other reaction(s): Unknown Other reaction(s): Unknown Neomycin-Bacitracin Zn-Polymyx Rash Jtbsqrhi-Topwremsl-Jqqsenfzlw Rash Outpatient Medications Prior to Visit Medication Sig Dispense Refill Acetaminophen 500 MG capsule Take by mouth. albuterol 108 (90 Base) MCG/ACT inhaler Inhale 2 puffs every 4 hours as needed for wheezing. 18 g 3 BIOTIN BEAUTY EXTRA STRENGTH PO Take by mouth. Diclofenac Sodium (Voltaren) 1 % gel APPLY ONE GRAM TO THE AFFECTED AREA TWO TO THREE TIMES DAILY fluticasone (Flonase) 50 MCG/ACT nasal spray USE 2 SPRAY(S) IN EACH NOSTRIL ONCE DAILY 16 g 3 HYDROmorphone (Dilaudid) 4 MG/ML injection by Other route. mupirocin (Bactroban) 2 % ointment mupirocin 2 % topical ointment omeprazole (PriLOSEC) [address] capsule Take 1 capsule (20 mg) by mouth in the morning and 1 capsule (20 mg) in the evening. Take before meals. 180 capsule 2 polyethylene glycol, PEG, 3350 (Glycolax) 17 GM/SCOOP powder polyethylene glycol 3350 17 gram/dose oral powder pregabalin (Lyrica) 75 MG capsule TAKE 1 CAPSULE BY MOUTH 4 TIMES DAILY FOR 28 DAYS traZODone (Desyrel) 50 MG tablet Take 1 tablet (50 mg) by mouth Nightly. 90 tablet 2 No facility-administered medications prior to visit. Past Medical History: Diagnosis Date Anxiety Bladder cancer ([facility]) Dr. 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 12/07/2018 Family history of diabetes mellitus GERD (gastroesophageal reflux disease) 2013 EGD H/O colonoscopy with polypectomy 03/2018 Hemorrhoids Hypercholesteremia Irritable bowel syndrome Lung nodule Melanosis coli Smoker Social History Socioeconomic History Marital status: Tobacco Use Smoking status: Every Day Packs/day: 0.50 Years: 52.00 Pack years: 26.00 Types: Cigarettes Start date: 05/08/1971 Smokeless tobacco: Never Vaping Use Vaping Use: Never used Substance and Sexual Activity Alcohol use: No Alcohol/week: 0.0 standard drinks of alcohol Drug use: No Past Surgical History: Procedure Laterality Date BRONCHOSCOPY (HISTORICAL) Right 03/02/2021 enb CARPAL TUNNEL RELEASE CHOLECYSTECTOMY COLONOSCOPY 04/11/2018 polyp removed COLONOSCOPY 09/16/2014 CYSTOSCOPY 04/21/2018 C&P bladder bx CYSTOSCOPY 01/21/2021 CYSTOSCOPY 03/15/2018 CYSTOSCOPY 02/02/2023 HEMORRHOID SURGERY TONSILLECTOMY (HISTORICAL) TOOTH EXTRACTION (HISTORICAL) upper teeth pulled TOTAL ABDOMINAL HYSTERECTOMY W/ BILATERAL SALPINGOOPHORECTOMY UPPER GASTROINTESTINAL ENDOSCOPY 01/2014 EGD with dilitation Past Surgical History: Procedure Laterality Date BRONCHOSCOPY (HISTORICAL) Right 03/02/2021 enb CARPAL TUNNEL RELEASE CHOLECYSTECTOMY COLONOSCOPY 04/11/2018 polyp removed COLONOSCOPY 09/16/2014 CYSTOSCOPY 04/21/2018 C&P bladder bx CYSTOSCOPY 01/21/2021 CYSTOSCOPY 03/15/2018 CYSTOSCOPY 02/02/2023 HEMORRHOID SURGERY TONSILLECTOMY (HISTORICAL) TOOTH EXTRACTION (HISTORICAL) upper teeth pulled TOTAL ABDOMINAL HYSTERECTOMY W/ BILATERAL SALPINGOOPHORECTOMY UPPER GASTROINTESTINAL ENDOSCOPY 01/2014 EGD with dilitation Family History Problem Relation Name Age of Onset Colon cancer Father 68 yrs High Blood Pressure Mother 70's Hyperlipidemia Sister Diabetes Mother 70's High Blood Pressure Sister Heart disease Mother 70's CHF Cancer Father 68 yrs colon ca 67yrs Cancer Mother 70's melanoma Diabetes Sister High Blood Pressure Father 68 yrs Diabetes Father 68 yrs High Blood Pressure Sister Objective BP 98/64 Pulse 74 Temp 36.5 C (97.7 F) Ht 5' 3 (1.6 m) Wt 111 lb 3.2 oz (50.4 kg) SpO2 99% BMI 19.70 kg/m Physical Exam Vitals and nursing note reviewed. Constitutional: General: She is not in acute distress. Appearance: Normal appearance. She is not ill-appearing. HENT: Head: Normocephalic and atraumatic. Eyes: Conjunctiva/sclera: Conjunctivae normal. Cardiovascular: Rate and Rhythm: Normal rate and regular rhythm. Pulses: Normal pulses. Heart sounds: Normal heart sounds. No murmur heard. No gallop. Pulmonary: Effort: Pulmonary effort is normal. No respiratory distress. Breath sounds: Normal breath sounds. No stridor. No wheezing, rhonchi or rales. Chest: Chest wall: No tenderness. Musculoskeletal: Cervical back: Neck supple. Right lower leg: No edema. Left lower leg: No edema. Skin: Comments: Large skin tear of the L forearm with surrounding ecchymosis and erythema Neurological: General: No focal deficit present. Mental Status: She is alert and oriented to person, place, and time. Psychiatric: Mood and Affect: Mood normal. Behavior: Behavior normal. Thought Content: Thought content normal. Judgment: Judgment normal. Data Reviewed POCT: Labs: Imaging/Testing: Chart Clean Up: There are no discontinued medications. Rose Marie Cohen DO 06/15/2023 3:49 PM documented in this encounter [facility] 06-15-2023 Miscellaneous Notes Addended by: EUGENE SIMPSON on: 06/17/2023 07:27 AM Modules accepted: Orders documented in this encounter [facility] 06-15-2023 Note Addended by: EUGENE LENTZ on: 06/17/2023 07:27 AM Modules accepted: Orders [facility] 06-14-2023 Telephone encounter Note Noted [facility] 06-14-2023 Miscellaneous Notes Noted S: Patient spoke with CAC nurse regarding multiple concerns. B: Onset of symptoms/concern: started 3 weeks ago with a cough, COVID test was negative 2 days ago. A: Patient states she has wet cough, green phlegm. States she has mild shortness of breath with exertion, but she does have COPD and she smokes, it is about the same. Denies chest pain. Denies fever. States she has runny, clear drainage with post nasal drip. States she has skin tear to left forearm, it happened 2 days ago, it is L shape tear, bleeding at times when she removes the bandaid, it is painful. Patient states she has burning with urination, frequency and urgency of urination, dribbling at times. Patient is requesting an appointment later this week. R: Patient understands care advice for cough and increase her fluids. COVID home test negative. screening questions negative. Office visit scheduled on 06/15/23 at 9AM. The location, date, provider, time of appointment were reviewed and insurance verified with the patient. Patient verbalizes understanding. Patient advised to bring photo ID and Insurance card. No further needs at this time. Patient instructed to call back with new or worsening symptoms. Reason for Disposition MILD difficulty breathing (e.g., minimal/no SOB at rest, SOB with walking, pulse <100) and still present when not coughing Protocols used: [id number] documented in this encounter [facility] 06-14-2023 Telephone encounter Note S: Patient spoke with CAC nurse regarding multiple concerns. B: Onset of symptoms/concern: started 3 weeks ago with a cough, COVID test was negative 2 days ago. A: Patient states she has wet cough, green phlegm. States she has mild shortness of breath with exertion, but she does have COPD and she smokes, it is about the same. Denies chest pain. Denies fever. States she has runny, clear drainage with post nasal drip. States she has skin tear to left forearm, it happened 2 days ago, it is L shape tear, bleeding at times when she removes the bandaid, it is painful. Patient states she has burning with urination, frequency and urgency of urination, dribbling at times. Patient is requesting an appointment later this week. R: Patient understands care advice for cough and increase her fluids. COVID home test negative. screening questions negative. Office visit scheduled on 06/15/23 at 9AM. The location, date, provider, time of appointment were reviewed and insurance verified with the patient. Patient verbalizes understanding. Patient advised to bring photo ID and Insurance card. No further needs at this time. Patient instructed to call back with new or worsening symptoms. Reason for Disposition MILD difficulty breathing (e.g., minimal/no SOB at rest, SOB with walking, pulse <100) and still present when not coughing Protocols used: [id number] [facility] 02-02-2023 Note Cystoscopy Procedure Note Indications: Malignant neoplasm of urinary bladder, unspecified site (HCC) [C67.9] Pre-operative Diagnosis: bladder cancer Post-operative Diagnosis: same Procedure Details The risks, benefits, complications, treatment options, and expected outcomes were discussed with the patient. The patient concurred with the proposed plan, giving informed consent. Cystoscopy was performed today under local anesthesia, using sterile technique. The patient was placed on the office table, prepped with Betadine, and draped in the usual sterile fashion. A flexible cystoscope was used to perform this procedure. Findings: Anterior urethra: normal without strictures and without scarring. Bladder: Mild trabeculation, without lesions. Ureteral orifice(s) was/were seen bilateral. Ureteral orifice(s) bilateral were in the normal location and bilateral ureteral orifices were effluxing clear urine. Specimens: none Complications: None; patient tolerated the procedure well. Disposition: To home after 30 minute observation. Condition: stable Attending Attestation: I performed the procedure. Cysto WNL She is now 5 years of surveillance Can switch to detect cx next year and cysto year after [facility] 02-02-2023 History of Present illness Narrative Images from the original note were not included. Cystoscopy Procedure Note Indications: Malignant neoplasm of urinary bladder, unspecified site (HCC) [C67.9] Pre-operative Diagnosis: bladder cancer Post-operative Diagnosis: same Procedure Details The risks, benefits, complications, treatment options, and expected outcomes were discussed with the patient. The patient concurred with the proposed plan, giving informed consent. Cystoscopy was performed today under local anesthesia, using sterile technique. The patient was placed on the office table, prepped with Betadine, and draped in the usual sterile fashion. A flexible cystoscope was used to perform this procedure. Findings: Anterior urethra: normal without strictures and without scarring. Bladder: Mild trabeculation, without lesions. Ureteral orifice(s) was/were seen bilateral. Ureteral orifice(s) bilateral were in the normal location and bilateral ureteral orifices were effluxing clear urine. Specimens: none Complications: None; patient tolerated the procedure well. Disposition: To home after 30 minute observation. Condition: stable Attending Attestation: I performed the procedure. Cysto WNL She is now 5 years of surveillance Can switch to detect cx next year and cysto year after documented in this encounter [facility] 02-02-2023 Miscellaneous Notes Addended by: LAUREN MUNIZ on: 02/02/2023 12:03 PM Modules accepted: Orders documented in this encounter [facility] 02-02-2023 Note Addended by: LAUREN MUNIZ on: 02/02/2023 12:03 PM Modules accepted: Orders [facility] 02-02-2023 Note Addended by: LAUREN MUNIZ on: 02/02/2023 12:03 PM Modules accepted: Orders [facility] 08-07-2021 Note HNO ID: [id number] Author: Carrie Al MD Service: ? Author Type: Physician Type: Progress Notes Filed: 08/07/2021 11:43 AM Note Text: LAZARA Collado is a 66 year old female here today for Recheck (esophageal dysphagia) She is known c/o- bladder cancer, stage-I, S/P BCG therapy (diagnosed 1 1/2 year ago). Patient is last seen in our office for c/o- difficulty swallowing which began 2 months earlier. We did EGD which showed poor motility in esophagus with candidiasis. She received a course of Diflucan. She feels much better today. She denies any c/o- dysphagia. ? She does c/o- oral thrush which makes her mouth sore. She uses Flonase for COPD. Also has GERD for which she takes omeprazole 20 mg day. No h/o- nausea, vomiting, loss of appetite, hematemesis, bleeding ME, unexplained weight loss, diarrhea, tenesmus, nocturnal diarrhea. Current Outpatient Medications Medication Sig - acetaminophen (TYLENOL 8 HOUR ORAL) Take by mouth. - fluticasone (FLONASE) 50 mcg/actuation nasal spray Use 2 Sprays in the nose. - HYDROmorphone (DILAUDID) 4 mg/mL syrg - pregabalin (LYRICA) 100 mg capsule Take 100 mg by mouth twice daily. - mupirocin (BACTROBAN) 2 % ointment Apply 1 application to affected area three times daily. - omeprazole (PRILOSEC) 20 mg capsule Take 20 mg by mouth once daily. - polyethylene glycol 3350 8.5 gram pwpk Take 17 g by mouth twice daily. - traZODone (DESYREL) 100 mg tablet Take 100 mg by mouth daily at bedtime. - albuterol HFA (PROAIR HFA) 90 mcg/actuation inhaler Inhale 2 Puffs as instructed three times daily as needed. No current facility-administered medications for this visit. ALLERGIES Allergen Reactions - Adhesive Intolerance Needs paper tape - Cephalexin GI Upset - Ciprofloxacin Hcl Unknown - Germanium GI Upset Can tolerate AZO - Neosporin Plus Max * Rash Other reaction(s): Unknown - Neosporin [Neomycin* Unknown Social History Tobacco Use - Smoking status: Current Every Day Smoker Packs/day: 0.75 Types: Cigarettes Start date: 06/14/1970 - Smokeless tobacco: Never Used - Tobacco comment: down to 0.5 ppd (05/2018) Vaping Use - Vaping Use: Never used Substance Use Topics - Alcohol use: No - Drug use: Never PAST MEDICAL HISTORY Diagnosis Date - Anxiety and depression - Bruit of left carotid artery 12/05/2017 - COPD (chronic obstructive pulmonary disease) (HCC) - Dysphagia - Esophagitis - Gastritis - GERD (gastroesophageal reflux disease) - Hemorrhoids - IBS (irritable bowel syndrome) - Lumbosacral spondylosis without myelopathy 06/14/2018 - Lung nodule - Malignant neoplasm of urinary bladder (HCC) 05/12/2018 - Melanosis coli PAST SURGICAL HISTORY Procedure Laterality Date - APPENDECTOMY 1987 - BREAST BIOPSY Left benign - CHOLECYSTECTOMY - COLONOSCOPY 04/11/[address] Hyperplastic polyp ACH by Dr. Yan Mauro - COLONOSCOPY 09/16/2014 - CYSTOSCOPY x2, 03-15-18 AND 04-21-18 - EGD 04/19/2019 gastritis, negative H pylori, candidas esophagitis, abnormal esophageal motility - EGD DILATION 01/22/2014 - HEMORRHOIDECTOMY - HYSTERECTOMY 1987 - INTRATHECAL PAIN PUMP ~ 2010 - REVISE MEDIAN N/CARPAL TUNNEL SURG Bilateral - TONSILLECTOMY HX 2004 - TOOTH EXTRACTION Upper teeth pulled. FAMILY HISTORY Problem Relation Age of Onset - Melanoma Mother - Hypertension Mother - Hyperlipidemia Mother - Diabetes Mother - Colon Cancer Father - Hypertension Father - Diabetes Father - Hypertension Sister - Hyperlipidemia Sister REVIEW OF SYSTEMS Review of Systems Gastrointestinal: Positive for abdominal pain and nausea. Gas All other systems reviewed and are negative. I have confirmed and edited as necessary, the PFSH and ROS obtained by others. Hemoglobin (g/dL) Date Value 01/11/2017 12.4 Hematocrit (%) Date Value 01/11/2017 36.9 WBC (k/uL) Date Value 01/11/2017 5.45 Platelet Count (k/uL) Date Value 01/11/2017 168 CMP: No results found for this basename: GLUC,BUN,CREAT,NA,K,CHLOR,CO2,TPRO T,ALB,CA,ALKPHOS,TBILI,AST,ALT PHYSICAL EXAM BP 130/72 Pulse 94 Ht 5' 3 (1.60m) Wt 109 lb (49.4kg) BMI 19.31 kg/(m2). General appearance: Well appearing, alert, in no acute distress, well-hydrated, well nourished. and Thin Skin: Skin color, texture, turgor normal Head: Normocephalic, no masses, lesions, tenderness or abnormalities Eyes: Anicteric sclera. Pupils are equally round. Oropharynx: Lips, mucosa, and tongue normal, teeth and gums normal, oropharynx normal Neck: Supple, no adenopathy; thyroid symmetric, normal size, no bruits Lungs: Lungs clear to auscultation. No wheezing, rhonchi, rales. Heart: RRR without murmur, gallop, or rubs. No ectopy Abdomen: Normal abdominal exam, Abdomen soft, non-tender. Bowel sounds normal. No masses, organomegaly Extremities: No deformities, edema, skin discoloration, clubbing or cyanosis. Good capillary refi (more content not included)... [facility] 05-14-2021 Hospital Discharge instructions Eddie Mckeon RN - 05/14/2021 10:47 PM EDT Continuity of Care Form Patient Name: Jes Collado : 1955 Admit date: 05/14/2021 Discharge date: Code Status Order: Prior Advance Directives: Admitting Physician: No admitting provider for patient encounter. PCP: Conor Sprague DO Discharging Nurse: Discharging Hospital Unit/Room#: 01/25 Discharging Unit Phone Number: Emergency Contact: Extended Emergency Contact Information Primary Emergency Contact: Maria Delgado [facility] Relation: Child Secondary Emergency Contact: Tim Israel Relation: None Past Surgical History: Past Surgical History: Procedure Laterality Date BRONCHOSCOPY Right 03/02/2021 enb CARPAL TUNNEL RELEASE CHOLECYSTECTOMY COLONOSCOPY 09/16/2014 COLONOSCOPY 04/11/2018 polyp removed CYSTOSCOPY 03/15/2018 CYSTOSCOPY 04/21/2018 C&P bladder bx CYSTOSCOPY 01/21/2021 HEMORRHOID SURGERY HYSTERECTOMY SKYLER AND BSO TONSILLECTOMY TOOTH EXTRACTION upper teeth pulled UPPER GASTROINTESTINAL ENDOSCOPY 01/2014 EGD with dilitation Immunization History: Immunization History Administered Date(s) Administered Influenza Virus Vaccine 07/29/2014 Influenza, Quadv, IM, (6 mo and older Fluzone, Flulaval, Fluarix and 3 yrs and older Afluria) 08/12/2016, 08/08/2018 Influenza, Quadv, IM, PF (6 mo and older Fluzone, Flulaval, Fluarix, and 3 yrs and older Afluria) 10/04/2017, 07/25/2019 Pneumococcal Conjugate Vaccine 08/27/2010 Pneumococcal Polysaccharide ([id number]) 11/27/2015 Tdap (Boostrix, Adacel) 05/19/2020 Tetanus 01/23/2003 Zoster Live (Zostavax) 04/22/2016 Active Problems: Patient Active Problem List Diagnosis Code Smoker F17.200 Anxiety and depression F41.9, F32.9 Bruit of left carotid artery R09.89 Drug-induced constipation K59.03 Malignant neoplasm of overlapping sites of bladder (HCC) C67.8 Malignant neoplasm of urinary bladder (HCC) C67.9 COPD (chronic obstructive pulmonary disease) (HCC) J44.9 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 B00.89 Cervical pain (neck) M54.2 Tendinitis of right hip M76.891 Inflammation of sacroiliac joint (HCC) M46.1 Thrombocytopenia (HCC) D69.6 Recurrent UTI N39.0 Lung mass R91.8 Isolation/Infection: Isolation No Isolation Patient Infection Status None to display Nurse Assessment: Last Vital Signs: BP 94/60 Pulse 62 Temp 97.5 F (36.4 C) (Oral) Resp 15 Ht 5' 3 (1.6 m) Wt 49.4 kg (109 lb) SpO2 97% BMI 19.31 kg/m Last documented pain score (0-10 scale): Last Weight: Wt Readings from Last 1 Encounters: 05/14/21 49.4 kg (109 lb) Mental Status: {IP PT MENTAL STATUS:} IV Access: { TASHA IV ACCESS:726628002} Nursing Mobility/ADLs: Walking {CHP DME ADLs:952061529} Transfer {CHP DME ADLs:141527370} Bathing {CHP DME ADLs:409841506} Dressing {CHP DME ADLs:938110803} Toileting {CHP DME ADLs:595466419} Feeding {CHP DME ADLs:416144555} Diabetes Manager {P DME ADLs:182324244} Med Delivery { TASHA MED Delivery:693785150} Wound Care Documentation and Therapy: Elimination: Continence: Bowel: {YES / NO:} Bladder: {YES / NO:} Urinary Catheter: {Urinary Catheter:948432699} Colostomy/Ileostomy/Ileal Conduit: {YES / NO:} Date of Last BM: No intake or output data in the 24 hours ending 05/14/217 No intake/output data recorded. Safety Concerns: { ATSHA Safety Concerns:007479758} Impairments/Disabilities: { TASHA Impairments/Disabilities:317157625 } Nutrition Therapy: Current Nutrition Therapy: { TASHA Diet List:545760218} Routes of Feeding: {[facility] DME Other Feedings:051972698} Liquids: {[facility] liquid thickness:09188} Daily Fluid Restriction: {CHP DME Yes amt example:376891540} Last Modified Barium Swallow with Video (Video Swallowing Test): {Done Not Done Date:} Treatments at the Time of Hospital Discharge: Respiratory Treatments: Oxygen Therapy: {Therapy; copd oxygen:00426} Ventilator: {[facility] Vent List:387941018} Rehab Therapies: {THERAPEUTIC INTERVENTION:3355992701} Weight Bearing Status/Restrictions: {[facility] Weight Bearin} Other Medical Equipment (for information only, NOT a DME order): {EQUIPMENT:250791510} Other Treatments: Patient's personal belongings (please select all that are sent with patient): {[facility] DME Belongings:932652406} RN SIGNATURE: {Esignature:697040734} CASE MANAGEMENT/SOCIAL WORK SECTION Inpatient Status Date: Readmission Risk Assessment Score: Readmission Risk Risk of Unplanned Readmission: 0 Discharging to Facility/ Agency Name: Address: Phone: Fax: Dialysis Facility (if applicable) Name: Address: Dialysis Schedule: Phone: Fax: Continuous Improvement Coordinator/Geodetic Survey Director signature: {Esignature:181089532} PHYSICIAN SECTION Prognosis: {Prognosis:3925355204} Condition at Discharge: { Patient Condition:838789365} Rehab Potential (if transferring to Rehab): {Prognosis:3211788784} Recommended Labs or Other Treatments After Discharge: Physician Certification: I certify the above information and transfer of Jes Collado is necessary for the continuing treatment of the diagnosis listed and that she requires {Admit to Appropriate Level of Care:35598} for {GREATER/LESS:002654006} 30 days. Update Admission H&P: {CHP DME Changes in HandP:725191327} PHYSICIAN SIGNATURE: {Esignature:793322381} Eddie Mckeon RN - 05/14/2021 Patient given discharge instructions, verbalizes understanding of meds, and follow up instructions. IV removed, intact, without issue. VSS, family at the bedside helping get the patient get dressed and go home. The following attachments cannot be sent through Care Everywhere.Dehydration (Samoan)UTI (Urinary Tract Infection): Female (Samoan)documented in this encounter [facility] Work Phone: 01-30-2021 Note HNO ID: [id number] Author: Carrie Al Service: ? Author Type: Physician Type: Progress Notes Filed: 01/30/2021 1:42 PM Note Text: HPI Jes Collado is a 65 year old female here today for follow-up. She is known c/o- bladder cancer, stage-I, S/P BCG therapy (diagnosed 1 year ago). Patient is c/o- difficulty swallowing which began 2 months ago. We did EGD which showed poor motility in esophagus with candidiasis. She received a course of Diflucan. She feels much better today. She denies any c/o- dysphagia. She does c/o- oral thrush which makes her mouth sore. She uses Flonase for COPD. Current Outpatient Medications Medication Sig - cetirizine (ZYRTEC) 10 mg tablet Take 10 mg by mouth. - sulfamethoxazole-trimethoprim (BACTRIM DS,SEPTRA DS) 800-160 mg per tablet take 1 tablet by mouth twice a day for 7 days - acetaminophen (TYLENOL 8 HOUR ORAL) Take by mouth. - fluticasone (FLONASE) 50 mcg/actuation nasal spray Use 2 Sprays in the nose. - HYDROmorphone (DILAUDID) 4 mg/mL syrg - pregabalin (LYRICA) 100 mg capsule Take 100 mg by mouth twice daily. - mupirocin (BACTROBAN) 2 % ointment Apply 1 application to affected area three times daily. - omeprazole (PRILOSEC) 20 mg capsule Take 20 mg by mouth once daily. - polyethylene glycol 3350 8.5 gram pwpk Take 17 g by mouth twice daily. - traZODone (DESYREL) 100 mg tablet Take 100 mg by mouth daily at bedtime. - albuterol HFA (PROAIR HFA) 90 mcg/actuation inhaler Inhale 2 Puffs as instructed three times daily as needed. No current facility-administered medications for this visit. ALLERGIES Allergen Reactions - Adhesive Intolerance Needs paper tape - Ciprofloxacin Hcl Unknown - Germanium GI Upset Can tolerate AZO - Neosporin [Neomycin* Unknown Social History Tobacco Use - Smoking status: Current Every Day Smoker Packs/day: 0.75 Types: Cigarettes Start date: 06/14/1970 - Smokeless tobacco: Never Used - Tobacco comment: down to 0.5 ppd (05/2018) Vaping Use - Vaping Use: Never used Substance Use Topics - Alcohol use: No - Drug use: Never PAST MEDICAL HISTORY Diagnosis Date - Anxiety and depression - Bruit of left carotid artery 12/05/2017 - COPD (chronic obstructive pulmonary disease) (HCC) - Dysphagia - Esophagitis - Gastritis - GERD (gastroesophageal reflux disease) - Hemorrhoids - IBS (irritable bowel syndrome) - Lumbosacral spondylosis without myelopathy 06/14/2018 - Lung nodule - Malignant neoplasm of urinary bladder (HCC) 05/12/2018 - Melanosis coli PAST SURGICAL HISTORY Procedure Laterality Date - APPENDECTOMY 1987 - BREAST BIOPSY Left benign - CHOLECYSTECTOMY - COLONOSCOPY 04/11/2018 Hyperplastic [address] ACH by Dr. Yan Mauro - COLONOSCOPY 09/16/2014 - CYSTOSCOPY x2, 03-15-18 AND 04-21-18 - EGD 04/19/2019 gastritis, negative H pylori, candidas esophagitis, abnormal esophageal motility - EGD DILATION 01/22/2014 - HEMORRHOIDECTOMY - HYSTERECTOMY 1987 - INTRATHECAL PAIN PUMP ~ 2010 - REVISE MEDIAN N/CARPAL TUNNEL SURG Bilateral - TONSILLECTOMY HX 2004 - TOOTH EXTRACTION Upper teeth pulled. FAMILY HISTORY Problem Relation Age of Onset - Melanoma Mother - Hypertension Mother - Hyperlipidemia Mother - Diabetes Mother - Colon Cancer Father - Hypertension Father - Diabetes Father - Hypertension Sister - Hyperlipidemia Sister REVIEW OF SYSTEMS Review of Systems Constitutional: Positive for appetite change and fatigue. HENT: Positive for mouth sores, sore throat, trouble swallowing and voice change. Respiratory: Positive for cough, choking and wheezing. Gastrointestinal: Positive for nausea. Gas heartburn I have confirmed and edited as necessary, the PFSH and ROS obtained by others. Hemoglobin (g/dL) Date Value 01/11/2017 12.4 Hematocrit (%) Date Value 01/11/2017 36.9 WBC (k/uL) Date Value 01/11/2017 5.45 Platelet Count (k/uL) Date Value 01/11/2017 168 CMP: No results found for this basename: GLUC,BUN,CREAT,NA,K,CHLOR,CO2,TPRO T,ALB,CA,ALKPHOS,TBILI,AST,ALT PHYSICAL EXAM BP 110/62 Pulse 84 Ht 5' 3 (1.60m) Wt 105 lb 8 oz (47.9kg) BMI 18.69 kg/(m2). General appearance: Well appearing, alert, in no acute distress, well-hydrated, well nourished. Skin: Skin color, texture, turgor normal Head: Normocephalic, no masses, lesions, tenderness or abnormalities Eyes: Anicteric sclera. Pupils are equally round. Oropharynx: Lips, mucosa, and tongue normal, teeth and gums normal, oropharynx normal Neck: Supple, no adenopathy; thyroid symmetric, normal size, no bruits Lungs: Lungs clear to auscultation. No wheezing, rhonchi, rales. Heart: RRR without murmur, gallop, or rubs. No ectopy Abdomen: Normal abdominal exam, Abdomen soft, non-tender. Bowel sounds normal. No masses, organomegaly Extremities: No deformities, edema, skin discoloration, clubbing or cyanosis. Good capillary refill. ASSESSMENT: (more content not included)... [facility] documented in this encounter [facility] Work Phone: Evaluation note* Diagnosis Other nonspecific abnormal finding of lung field Lung mass Swelling, mass, or lump in chest documented in this encounter [facility] Work Phone: Evaluation note* Diagnosis Urinary tract infection with hematuria, site unspecified- Primary Dehydration documented in this encounter [facility] Work Phone: Evaluation note* Diagnosis Unspecified lump in the right breast, lower outer quadrant documented in this encounter [facility] Work Phone: Evaluation note* Diagnosis Intractable headache, unspecified chronicity pattern, unspecified headache type Other specified symptoms and signs involving the circulatory and respiratory systems Personal history of malignant neoplasm of bladder Bruit of left carotid artery Other symptoms involving cardiovascular system documented in this encounter [facility] Work Phone: Evaluation note* Diagnosis Right hip pain Pain in joint, pelvic region and thigh documented in this encounter [facility] Work Phone: Evaluation note* Diagnosis Burning with urination Dysuria Frequency of micturition Urinary frequency Urgency of urination documented in this encounter [facility] Work Phone: Evaluation note* Diagnosis Lumbar stenosis with neurogenic claudication Spinal stenosis, lumbar region, with neurogenic claudication documented in this encounter [facility] Work Phone: Evaluation note* Diagnosis Burning with urination Dysuria documented in this encounter [facility] Work Phone: Evaluation note* Diagnosis Headache disorder- Primary Headache Bronchitis Bronchitis, not specified as acute or chronic documented in this encounter [facility] Work Phone: Evaluation note* Diagnosis Nicotine dependence, cigarettes, uncomplicated documented in this encounter [facility] Work Phone: Evaluation note* Diagnosis Malignant neoplasm of urinary bladder, unspecified site (HCC)- Primary Dysuria [facility]* Diagnosis Bilateral carotid artery stenosis Occlusion and stenosis of carotid artery without mention of cerebral infarction [facility]* Diagnosis COPD exacerbation (HCC)- Primary Obstructive chronic bronchitis with exacerbation Dysuria Screening, lipid Screening for diabetes mellitus Dizziness Dizziness and giddiness Need for hepatitis C screening test Special screening examination for other specified viral diseases Skin tear of forearm without complication, left, initial encounter documented in this encounter [facility]* Diagnosis COPD exacerbation (HCC)- Primary Obstructive chronic bronchitis with exacerbation Dysuria Screening, lipid Screening for diabetes mellitus Dizziness Dizziness and giddiness Need for hepatitis C screening test Special screening examination for other specified viral diseases Skin tear of forearm without complication, left, initial encounter documented in this encounter [facility]* Diagnosis Cigarette nicotine dependence without complication- Primary documented in this encounter [facility]* Diagnosis Abdominal pain, generalized- Primary Urinary tract infection in female documented in this encounter [facility]* Diagnosis Benign skin lesion of face- Primary Acute cystitis without hematuria documented in this encounter [facility] Discharge instructions* Attachments The following attachments cannot be sent through Care Everywhere. * Urinary Tract Infection Discharge Instructions, Adult (Samoan) * Severe Abdominal Pain Discharge Instructions, Adult (Samoan) documented in this [facility] for referral (narrative)* Consultation (Routine) - Pending Review Specialty Diagnoses / Procedures Referred By Tiffany brady Referred To Contact Dermatology Diagnoses Benign skin lesion of face Procedures ME OFFICE/OUTPATIENT NEW [facility] MDM 60-74 MINUTES Rose Marie Cohen DO [address] [facility] [address] [place] [address] Kasey Yuen MD [address] [facility] [address] [place] [address] Referral ID Status Reason Start Date Expiration Date Visits Requested Visits Authorized [id number] Pending Review Specialty Services Required 3 10/05/2024 1 1 [facility] Summary Purpose Family History No Family History Records FoundNo Family History Records FoundNo Family History Records FoundNo Family History Records FoundNo Family History Records Found Advance Directives No Advanced Directives Records FoundDocuments on File Type Date Recorded Patient Technical Support Assistant Expl anation Advance Directives and Living Will Power of Passenger Interline Clerk Latest Code Status on File Code Status Date Activated Date Inactivated Comments Full Code 04/21/2018 10:51 AM 04/21/2018 8:16 PM Documents on File Type Date Recorded Patient Technical Support Assistant Expl anation Advance Directives and Living Will Power of Passenger Interline Clerk Latest Code Status on File Code Status Date Activated Date Inactivated Comments Full Code 04/21/2018 10:51 AM 04/21/2018 8:16 PM Documents on File Type Date Recorded Patient Technical Support Assistant Expl anation ACP-Advance Directive ACP-Power of Passenger Interline Clerk Documents on File Type Date Recorded Patient Technical Support Assistant Expl anation ACP-Advance Directive ACP-Power of Passenger Interline Clerk Latest Code Status on File Code Status Date Activated Date Inactivated Comments Full Code 03/02/2021 9:53 AM 03/02/2021 1:09 PM Full Code 04/21/2018 10:51 AM 04/21/2018 8:16 PM Latest Code Status on File Code Status Date Activated Date Inactivated Comments Full Code 03/02/2021 9:53 AM 03/02/2021 1:09 PM Full Code 04/21/2018 10:51 AM 04/21/2018 8:16 PM Reason for Referral Status Reason Specialty Diagnoses / Procedures Referre d By Contact Referred To Contact [facility] Diagnoses Nicotine dependence, cigarettes, uncomplicated Procedures CT LUNG SCREENING Conor Sprague DO [address] [place] [address] Status Reason Specialty Diagnoses / Procedures Re ferred By Contact Referred To Contact [facility] Diagnoses Pancreatic mass Procedures CT ABDOMEN PELVIS W IV CONTRAST Additional Contrast? Radiologist Recommendation Conor Sprague DO [address] [place] [address] Status Reason Specialty Diagnoses / Procedures Referre d By Contact Referred To Contact [facility] Diagnoses Lumbar stenosis with neurogenic claudication Cervical pain (neck) Procedures MRI Thoracic Spine WO Contrast Andrew Block MD [address] [place] [address] Status Reason Specialty Diagnoses / Procedures Referre d By Contact Referred To Contact [facility] Diagnoses Encounter for screening for lung cancer Procedures CT LUNG SCREENING Conor Sprague DO [address] [place] [address] Status Reason Specialty Diagnoses / Procedures Referre d By Contact Referred To Contact [facility] Diagnoses Lung mass Procedures CT CHEST WO CONTRAST Erwin Etienne MD [address] [place] [address] Status Reason Specialty Diagnoses / Procedures Referre d By Contact Referred To Contact [facility] Diagnoses Unspecified lump in the right breast, lower outer quadrant Procedures US Breast Limited Right Conro Sprague DO [address] [place] [address] Status Reason Specialty Diagnoses / Procedures Referred By Contact Referred To Contact [facility] Diagnoses Bruit of left carotid artery Procedures VL DUP CAROTID BILATERAL Conor Sprague DO [address] [place] [address] Status Reason Specialty Diagnoses / Procedures Referre d By Contact Referred To Contact [facility] Diagnoses Intractable headache, unspecified chronicity pattern, unspecified headache type Procedures MRI BRAIN W WO CONTRAST Conor Sprague DO [address] [place] [address] Status Reason Specialty Diagnoses / Procedures Re ferred By Contact Referred To Contact Authorized Radiology Diagnoses Lumbar stenosis with neurogenic claudication Procedures MRI Lumbar Spine WO Contrast Andrew Block MD [address] [address] Specialty Diagnoses / Procedures Referred By Contac t Referred To Contact Neurology Diagnoses Headache disorder Ritesh Lawton MD [address] [place] [address] [facility] [address] [address] Referral ID Status Reason Start Date Expiration Date V isits Requested Visits Authorized Open Specialty Services Required 01/28/2022 01/28/2023 1 1 Scheduling Instructions [facility] Neurology - [place] [address] [address] Specialty Diagnoses / Procedures Referred By Contac t Referred To Contact Radiology Diagnoses Nicotine dependence, cigarettes, uncomplicated Procedures CT LUNG SCREENING Conor Sprague DO [address] [place] [address] Referral ID Status Reason Start Date Expiration Date Visits Re quested Visits Authorized [id number] Open 07/13/2022 07/13/2023 1 1 Specialty Diagnoses / Procedures Referred By Contac t Referred To Contact Cardiology Diagnoses Bilateral carotid artery stenosis Procedures Vascular US carotid artery duplex bilateral Rose Marie Cohen DO [address] [place] [address] Referral ID Status Reason Start Date Expiration Date V isits Requested Visits Authorized [id number] Closed Perform Procedure 01/07/2023 07/06/2023 1 1 Specialty Diagnoses / Procedures Referred By Contac t Referred To Contact Radiology Diagnoses Cigarette nicotine dependence without complication Procedures CT lung screening low dose Rose Marie Cohen, [address] [facility] [address] [place] [address] Referral ID Status Reason Start Date Expiration Date V isits Requested Visits Authorized [id number] Pending Review 09/12/2023 09/11/2024 1 1 Assessments Diagnosis Nicotine dependence, cigarettes, uncomplicated Diagnosis Other specified diseases of pancreas Diagnosis Pancreatic mass Unspecified disease of pancreas Blood tests prior to treatment or procedure Pre-procedural laboratory examination Diagnosis Other specified diseases of pancreas Pancreatic mass Unspecified disease of pancreas Diagnosis Lumbar stenosis with neurogenic claudication Spinal stenosis, lumbar region, with neurogenic claudication Cervical pain (neck) Cervicalgia Diagnosis Encounter for screening for lung cancer Additional Source Comments INFORMATION SOURCE (unrecogn ized section and content) DATE CREATED AUTHOR AUTHOR'S ORGANIZ ATION 11/22/2019 [employer] DATE CREATED AUTHOR AUTHOR'S ORGANIZ ATION 01/13/2022 [facility] DATE CREATED AUTHOR AUTHOR'S ORGANIZ ATION 07/25/2022 [facility] DATE CREATED AUTHOR AUTHOR'S ORGANIZ ATION 11/10/2023 [employer] [facility] Reason for Visit (unrecogniz ed section and content) Reason Comments Altered Mental Status Reason Comments Procedure Cystoscopy Urgency , weak stream dribbling Specialty Diagnoses / Procedures Referred By Contac t Referred To Contact Cardiology Diagnoses Bilateral carotid artery stenosis Procedures Vascular US carotid artery duplex bilateral Rose Marie Cohen, [address] [place] [address] Referral ID Status Reason Start Date Expiration Date V isits Requested Visits Authorized [id number] Closed Perform Procedure 01/07/2023 07/06/2023 1 1 Reason Comments Cough UTI Abrasion Left arm Reason Onset Date Comments Cough 06/14/2023 Reason Onset Date Comments Rx for antibiotic ointment 07/06/2023 Reason Onset Date Comments Med Refill 08/15/2023 fluticasone (Luis nase) 50 MCG/ACT nasal spray Reason Onset Date Comments Annual Lung Screening Reminder 09/08/2023 Reason Onset Date Comments Release of Information 09/09/2023 Reason Comments Abdominal Pain Reason Comments Skin Lesion Forehead , Nose Pt s een in ER yesterday for abdominal pain Urine culture in process Ordered Prescriptions (unrec ognized section and content) Scheduled Active and Recently Administ ered Medications (unrecognized section and content) Scheduled Medication Order 01/26/2022 01/27/2022 01/28/2022 0.9 % sodium chloride bolus (COMPLETED) 500 mL, IntraVENous, at 967.7 mL/hr, Administer over 31 Minutes, ONCE, On Hayde 01/28/22 at 1122, For 1 dose 1141 (New Bag - Prov ider: Yulissa Jang RN)1212 (Stopped - Provider: Sophia Werner RN) acetaminophen (TYLENOL) tablet 650 mg (COMPLETED) 650 mg, Oral, ONCE, 1 dose, On Hayde 01/28/22 at 1122, Maximum dose of acetaminophen is 4000 mg from all sources in 24 hours. 1149 (Given - Provid er: Yulissa Jang RN) dexamethasone (DECADRON) tablet 4 mg (COMPLETED) 4 mg, Oral, ONCE, 1 dose, On Hayde 01/28/22 at 1122 1151 (Given - Provid er: Yulissa Jang RN) prochlorperazine (COMPAZINE) injection 5 mg (COMPLETED) 5 mg, IntraVENous, ONCE, 1 dose, On Hayde 01/28/22 at 1122 1147 (Given - Provid er: Yulissa Jang RN) Scheduled Medication Order 10/03/2023 10/04/2023 10/05/2023 HYDROmorphone (Dilaudid) injection 0.5 mg (COMPLETED) 0.5 mg, IntraVENous, Once, On Tue10/05/23 at 1515, For 1 dose, If oral and IV narcotics ordered, use oral first and only use IV if oral is ineffective or cannot take oral. Do Not give oral and IV within 1 hour of each other unless specifically ordered. 1524 (Given - Provid er: Sophia Werner RN) ondansetron (Zofran) injection 4 mg (COMPLETED) 4 mg, IntraVENous, Once, On Tue10/05/23 at 1515, For 1 dose 1524 (Given - Provid er: Sophia Werner RN) sodium chloride 0.9 % bolus 1,000 mL (COMPLETED) 1,000 mL, IntraVENous, at 1,000 mL/hr, Administer over 1 Hours, Once, On Tue10/05/23 at 1515, For 1 dose 1524 (New Bag - Prov ider: Sophia Werner RN)1624 (Stopped - Provider: Sophia Werner RN) Care Teams (unrecognized sec tion and content) Manager Building Relationship Specialty Start Date End Date Conor Sprague, DO [address], [place] [id number] PCP - General Family Medicine 04/22/15 Manager Building Relationship Specialty Start Date End Date Conor Sprague, DO [address], [place] [id number] PCP - General Family Medicine 04/22/15 Manager Building Relationship Specialty Start Date End Date Rose Marie Cohen DO [address] [place], [place] [address] PCP - General Internal Medicine 01/07/23 Marck Dc MD [address] [place] [address] Surgeon Urology 02/02/23 Manager Building Relationship Specialty Start Date End Date Rose Marie Coehn DO [address] [place] [address] PCP - General Internal Medicine 01/07/23 Marck Dc MD [address] [place] [address] Surgeon Urology 02/02/23 Manager Building Relationship Specialty Start Date End Date Rose Marie Cohen DO [address] [place] [address] PCP - General Internal Medicine 01/07/23 Marck Dc MD [address] [place], [place] [id number] Surgeon Urology 02/02/23 Manager Building Relationship Specialty Start Date End Date Rose Marie Cohen DO [address] [place] [address] PCP - General Internal Medicine 01/07/23 Marck Dc MD [address] [place] [address] Surgeon Urology 02/02/23 Manager Building Relationship Specialty Start Date End Date Rose Marie Cohen DO [address] [place] [address] PCP - General Internal Medicine 01/07/23 Marck Dc MD [address] [place] [address] Surgeon Urology 02/02/23 Manager Building Relationship Specialty Start Date End Date Rose Marie Cohen DO [address] [place] [address] PCP - General Internal Medicine 01/07/23 Marck Dc MD [address] [place] [address] Surgeon Urology 02/02/23 Manager Building Relationship Specialty Start Date End Date Rose Marie Cohen DO [address] [place] [address] PCP - General Internal Medicine 01/07/23 Marck Dc MD [address] [place] [address] Surgeon Urology 02/02/23 Manager Building Relationship Specialty Start Date End Date Rose Marie Cohen DO [address] [place] [address] [address] [place] [address] PCP - General Internal Medicine 01/07/23 Marck Dc MD [address] [place] [address] Surgeon Urology 02/02/23 Manager Building Relationship Specialty Start Date End Date Rose Marie Cohen DO [address] [place] [address] [address] [place] [address] PCP - General Internal Medicine 01/07/23 Marck Dc MD [address] [place], [place] [id number] Surgeon Urology 02/02/23 Manager Building Relationship Specialty Start Date End Date Rose Marie Cohen DO [address] [place] [address] PCP - General Internal Medicine 01/07/23 Marck Dc MD [address] [place], [place] [id number] Surgeon Urology 02/02/23 Manager Building Relationship Specialty Start Date End Date Rose Marie Cohen DO [address] [place] [address] [address] [place] [address] PCP - General Internal Medicine 01/07/23 Marck Dc MD [address] [place], [place] [id number] Surgeon Urology 02/02/23 FOR RECORDS PERTAINING TO PATIENTS WHO ARE OR HAVE BEEN ENROLLED IN A CHEMICAL DEPENDENCY/SUBSTANCEABUSE PROGRAM, SOME INFORMATION MAY BE OMITTED. This clinical summary was aggregated from multiple sources. Caution should be exercised in using it in the provision of clinical care. This summary normalizes information from multiple sources, and as a consequence, information in this document may materially change the coding, format and clinical context of patient data. In addition, data may be omitted in some cases. CLINICAL DECISIONS SHOULD BE BASED ON THE PRIMARY CLINICAL RECORDS. [facility]. provides no warranty or guarantee of the accuracy or completeness of information in this document.
== END | disposition home or self-care (01) ==
PROVIDERS: PCP Family Medicine; Referring Provider Anesthesiology Pain Medicine; Visit Provider Anesthesiology Pain Medicine
DX: M50.30 Other cervical disc degeneration, unspecified cervical region (principal); M47.812 Spondylosis without myelopathy or radiculopathy, cervical region
CPT/HCPCS: 72040

== ENCOUNTER 2024-02-22 09:30 | Outpatient (RCR) | payer MEDICARE, MEDICAID, SELFPAY ==
--- NOTE | 2024-01-16 12:08 | HP.PTEVAL_ITS ---
Patient's Visit Information Visit Information Visit Information: SOHA COLLADO is a 68 year old F referred to Physical Therapy by Dr. Sandro Gramajo MD with a diagnosis of Low back pain. Date of Evaluation: 01/16/24 Physical Therapist: Tadeo Javed, PT, ATC Visit Plan Frequency: 2x /Week Duration: 3-6 weeks Plan: Postural edu, SKTC/DKTC, score stab ex's, B LE strengthening, nustep, and HEP Subjective Subjective: Pt reports she has had R hip pain and hypersensitivity since 2009. Pt reports the pain was so severe she would walk around crying at times. Pt notes she started getting injections at that time which did make a difference. Pt also notes she had a pain pump inserted into her spine at that time which has helped some. Pt reports she is limited with all activity secondary to pain. Pt reports increased pain with laundry activity, and with performing gardening type of activity. Pt reports she is due for a new pain pump within the next 3 months. Pt reports significant sleep difficulty at this time secondary to pain. Pt reports intermittent B LE radiculopathy that radiates all the way down to her toes. Pt reports LBP is rated at 7/10 while sitting here in the clinic, but notes it elevates to 10/10 at worst. Pain LBP, R hip pain: Pain Intensity (Out of 10): 7 Pain Intensity Range: 10 Objective Objective: Neuro: B LE sensation is WNL to light touch. B patellar reflex= 2/3. MMT: B LE's are grossly 4-/5 throughout ROM: Pt is severely limited with flex and L SB of L/S Repeated movements: RFIS 10x2 decreased pain. ALINA x 10 peripheralized sx's. Balance/Special Test Scores Oswestry Low Back Score: 37 Goals Goal 1:: Decrease LBP x 50% to aid with sleep Goal Time Frame: 4-6 Weeks Goal 2:: Decrease the frequency and intensity of B LE radiculopathy x 50% to aid with ambulation Goal Time Frame: 4-6 Weeks Goal 3:: I with HEP Goal Time Frame: 4-6 Weeks Goal 4:: Increase B LE strength x 1 grade to aid with IADL's Goal Time Frame: 4-6 Weeks Rehabilitation Potential Physical Therapy Diagnosis: Pt has LBP, B LE radiculopathy, and B LE weakness secondary to degenerative changes in the L/S Rehabilitation Potential: Good Anticipated Interventions Patient/Client Instruction: Educate patient on: Condition and Plan of Care For the Purpose of:: To improve self management Therapeutic Exercise to Include: Strength training, Endurance training, Postural training, Passive ROM, Active ROM and Dynamic Lumbar Stabilization For the Purpose of:: To decrease pain, To increase ROM and To improve muscle performance and motor function Cryotherapy (ice pack, ice massage): Yes For the Purpose of:: To decrease pain Text: Thank you for the opportunity to evaluate your patient. For Medicare and Medicare HMO plans, please review the plan of care and approve it. It will need to be FAXED BACK to us at [phone] for Medicare purposes. For Medicare only, by signing this I certify the plan of care. Please let me know if there are questions or concerns regarding this plan of care. Physician Signature : Date:
--- NOTE | 2024-02-22 10:02 | HP.PTDCSUM ---
Discharge Summary D/C summary: It has been my pleasure to treat SOHA COLLADO referred by Dr. Sandro Gramajo MD, with the diagnosis of Low back pain for a total of 6 visit(s). Discharge Date: Please see the following information for a summary of their discharge status. Subjective Subjective: I feel good today, I am ready to be done Pain LBP, R hip pain: Pain Intensity (Out of 10): 4 Overall Improvement % Improvement: 75 Objective Objective/Function: LBP is 4/10 which is progressing, but pt still notes occasional sleep difficulty Pt is I with HEP Pt reports no LE radiculopathy B LE MMT 5/5 throughout Goals Goal 1:: Decrease LBP x 50% to aid with sleep Goal Progress: Progressing Goal 2:: Decrease the frequency and intensity of B LE radiculopathy x 50% to aid with ambulation Goal Progress: Goal Met Goal 3:: I with HEP Goal Progress: Goal Met Goal 4:: Increase B LE strength x 1 grade to aid with IADL's Goal Progress: Goal Met Plan Plan: Discharge to [facility] D/C Information d/c sentence: If there are questions or concerns regarding this patient's physical therapy, please feel free to call me at [phone]. Thank you for the referral of this patient. Sincerely, Tadeo Javed, PT, ATC Balance/Gait/Functional tests Balance/Special Test Scores Oswestry Low Back Score: 7 Improvement % Improvement: 75
== END 2024-02-22 12:29 | disposition home or self-care (01) ==
LOC: PT 09:30
PROVIDERS: PCP Family Medicine; Referring Provider Anesthesiology Pain Medicine; Visit Provider Anesthesiology Pain Medicine
DX: M54.9 Dorsalgia, unspecified (principal)
CPT/HCPCS: 97110; 97161; 97164

== ENCOUNTER 2024-05-10 09:50 | Emergency (ER) | payer MEDICARE, MEDICAID, SELFPAY ==
[2024-05-10 09:52] VITALS: BP 145/90; PULSE 64; RESP 18; TEMP 36.5; O2SAT 100; BMI 19.9
--- NOTE | 2024-05-10 10:00 | CT_ITS ---
STUDY: CT BRAIN WITHOUT CONTRAST REASON FOR EXAM: Female, 68 years old. Injury RADIATION DOSAGE (If Supplied By Facility): CTDIvol = ( 44.99 ) mGy, DLP = ( 812.98 ) mGycm TECHNIQUE: Transaxial CT imaging of the brain was performed without administration of intravenous contrast material. Individualized dose optimization techniques were used for this CT. COMPARISON: No relevant priors. FINDINGS: Normal soft tissue structures. Normal calvarium. There is mild cerebral atrophy with widening of the extra-axial spaces and ventricular dilatation. Prominent CSF space seen in the anterior aspect of the left temporal lobe as well as in the region of the left sylvian fissure. This may represent an arachnoid cyst. Normal basal ganglia and thalami. Normal brainstem. Normal cerebellum. There is no intracranial hemorrhage. There are no findings of an acute ischemic infarction. Normal visualized paranasal sinuses. CT/Brain/Head without Contrast IMPRESSION: Chronic involutional changes of the brain. Prominent CSF space along the anterior aspect of the left temporal lobe suggestive of possible arachnoid cyst. Electronically Signed: Regan Lizama MD at 10:42 EDT ,
--- NOTE | 2024-05-10 10:04 | EDS_ITS ---
HPI History of Present Illness Chief Complaint: Fall Informant: patient, friend and EMS Narrative Narrative: 68-year-old female presenting to the emergency room following a fall. Patient notes pain to the left shoulder. She states that she skinned her left knee. She denies any other injuries. She denies being on a blood thinner. She takes Dilaudid pain pump for chronic pain. After the patient's friend arrived she remembers that she did strike the back of her head. She notes a slight headache. She denies any new neck or back pain. She is right-handed. She points to the shoulder as the area that hurts [facility] Medical History History of bladder cancer Chronic pain Home Medications ?Medication ?Instructions ?Recorded ?Last Taken ?Type albuterol sulfate 90 mcg/actuation 2 puff inhalation Q6H PRN 02/05/22 Unknown History aerosol inhaler diclofenac sodium 1 % topical gel gm topical 02/05/22 Unknown History fluticasone propionate 50 gm intranasal 02/05/22 Unknown History mcg/actuation nasal spray,suspension omeprazole 20 mg capsule,delayed 20 mg PO DAILY 02/05/22 Unknown History release polyethylene glycol 3350 17 17 g PO BID 02/05/22 Unknown History gram/dose oral powder pregabalin 75 mg capsule 75 mg PO .QID 02/05/22 Unknown History Dilaudid pain pump OTHER 04/12/22 Unknown History oxycodone 5 mg tablet 5 mg PO Q6H PRN pain 5 days #20 05/10/24 Unknown Rx tabs Allergy/AdvReac Type Severity Reaction Status Date / Time bacitracin (From Neosporin Allergy rash, Verified 05/10/24 09:54 ([id number])) itcing neomycin (From Neosporin Allergy rash, Verified 05/10/24 09:54 ([id number])) itcing polymyxin B (From Neosporin Allergy rash, Verified 05/10/24 09:54 ([id number])) itcing adhesive tape AdvReac Mild skin tears Verified 05/10/24 09:54 Family History Other Hypertension Surgical History History of hysterectomy History of carpal tunnel release of both wrists History of cholecystectomy Social History Smoking Status: Current every day smoker tobacco type: cigarettes ROS ROS ED Constitutional Constitutional ED: Denies chills, fever(s) or weight loss Eyes Eyes: Denies change in vision or diplopia ENT ENT ED: Denies ear pain, rhinorrhea or sore throat Cardiovascular Cardiovascular: Denies chest pain, orthopnea, palpitations or racing heartbeat Respiratory/Chest Respiratory/Chest: Denies cough, dyspnea or orthopnea Gastrointestinal Gastrointestinal: Denies abdominal pain, diarrhea, nausea or vomiting Genitourinary Genitourinary ED: Denies dysuria, hematuria or urinary frequency Musculoskeletal Musculoskeletal: Reports other Details: Chronic back pain no change denies neck pain. See HPI ; Denies arthralgias or myalgias Integumentary Reports Abrasions; Denies abscess or rash Neurologic Neurologic: Reports headache(s); Denies paresthesias or weakness Psychiatric Psychiatric: Denies anxiety, depression, suicidal ideation or suicidal thoughts Endocrine Endocrinology: Denies polydipsia, polyphagia or polyuria Allergic/Immunologic Allergic/Immunologic ED: Denies mouth swelling, tongue swelling or urticaria EXAM Physical Exam Const Vital Signs: 05/10/24 09:52 05/10/24 10:54 Temperature 97.7 F L Temperature Source Temporal Pulse Rate 64 Respiratory Rate 18 Respiratory Effort Normal Non-Labored Respiratory Depth Normal Respiratory Pattern Normal Blood Pressure 145/90 H Blood Pressure Mean 108 Pulse Ox 100 Oxygen Delivery Method Room Air Room Air Positive well nourished and well developed General Appearance ED: well developed and NAD HEENT Reports normocephalic, head/scalp atraumatic and moist mucous membranes atraumatic Eyes PERRL and EOMs intact bilaterally Neck full ROM, no lymphadenopathy, supple and no JVD Resp normal respiratory effort and clear to auscultation bilaterally Cardio regular rate, regular rhythm and no murmurs GI normal to inspection, nondistended, normoactive bowel sounds and non-tender Palpation: soft Back/Spine no CVA tenderness and normal ROM Extremity Extremity Narrative: Patient notes tenderness to palpation to light touch of the left shoulder. I do not palpate a obvious dislocation. Neurovascular intact distal. There are abrasions to the left knee proximal anterior leg. General Extremety ED: Negative for edema General Extremity: Negative for edema Neuro oriented x3 and CN's II-XII intact bilaterally Ivy Coma Scale: document GCS findings Spontaneous Obeys Commands Oriented 15 Sensorium / Orientation: alert Motor Exam: strength 5/5 throughout Psych mental status grossly normal Mood & Affect: Negative for depressed or tearful Skin no rashes or lesions noted Trauma: abrasion MDM MDM MDM Narrative Medical decision making narrative: Differential diagnosis includes fracture dislocation sprain strain rotator cuff injury intracranial hemorrhage hematoma skull fracture skin abrasions CT of the brain demonstrated no acute findings. My independent interpretation of the plain films of the left shoulder is acute fracture or through the surgical neck. Patient received a milligram of Dilaudid. Wounds were cleansed and dressed. She will be placed in a sling. I will write for oxycodone. She has seen Dr. Weber in the past for orthopedics. I will refer her there. History & Record Review Discussion w/independent historian: Patient and Friend Lab Data Attestation: I reviewed the patient's lab results. Radiography Diagnostic Testing: Clinical Impression(s) from Imaging Studies Brain CT 05/10/24 10:00 IMPRESSION: Chronic involutional changes of the brain. Prominent CSF space along the anterior aspect of the left temporal lobe suggestive of possible arachnoid cyst. Electronically Signed: Regan Lizama MD at 10:42 EDT , Shoulder X-Ray 05/10/24 10:24 IMPRESSION: Nondisplaced transverse fracture of the surgical neck of the proximal humerus with overlying soft tissue swelling. Electronically Signed: Regan Lizama MD at 10:43 EDT , Discharge Plan Triage Chief Complaint: Fall Other Complaint: Upper Extremity Injury ED Provider: Rogerio Santoyo Dx/Rx/DC Orders Clinical Impression: Fall, Chronic thoracic back pain, Closed left humeral fracture, Head injury, Abrasion of skin Instructions: Understanding a Humerus Fracture, ED Head Injury (Adult) Prescriptions: New oxycodone 5 mg tablet 5 mg PO Q6H PRN (Reason: pain) 5 Days Qty: 20 0RF No Action fluticasone propionate 50 mcg/actuation spray,suspension intranasal Patient Comments: USE 2 SPRAY(S) IN EACH NOSTRIL ONCE DAILY albuterol sulfate 90 mcg/actuation HFA aerosol inhaler 2 puff inhalation Q6H PRN Patient Comments: INHALE 2 PUFFS BY MOUTH EVERY 4 HOURS NEEDED FOR WHEEZING pregabalin 75 mg capsule 75 mg PO .QID Patient Comments: TAKE 1 CAPSULE BY MOUTH 4 TIMES DAILY omeprazole 20 mg capsule,delayed release(DR/EC) 20 mg PO DAILY Patient Comments: TAKE 1 CAPSULE BY MOUTH TWICE DAILY diclofenac sodium 1 % gel topical Patient Comments: APPLY ONE GRAM TO THE AFFECTED AREA TWO TO THREE TIMES DAILY polyethylene glycol 3350 17 gram/dose powder 17 g PO BID Patient Comments: DISSOLVE 1 CAPFUL (17 GRAMS) IN LIQUID & DRINK TWICE DAILY Dilaudid pain pump OTHER Primary Care Provider: MARITZA LEBLANC Referrals: MARITZA LEBLANC DO [Primary Care Provider] - Conner Weber DO [Med Staff - Active Staff] - As soon as possible (for orthopedic evaluation and care) Print Language: Prydeinig Disposition Disposition: Home, Self Care
[2024-05-10] MEDS: HYDROmorphone 1 MG/ML Syringe IV (10:09)
--- NOTE | 2024-05-10 10:24 | RAD_ITS ---
STUDY: X-RAY - LEFT SHOULDER REASON FOR EXAM: Female, 68 years old. Pain following a fall. TECHNIQUE: 2 view(s) of the shoulder. COMPARISON: None. FINDINGS: Normal glenohumeral articulation. Normal acromioclavicular joint. Normal acromion. Nondisplaced transverse fracture of the surgical neck of the proximal humerus. Soft tissue swelling. Normal visualized pulmonary apex. RAD/Shoulder min 2 Views IMPRESSION: Nondisplaced transverse fracture of the surgical neck of the proximal humerus with overlying soft tissue swelling. Electronically Signed: Regan Lizama MD at 10:43 EDT ,
[2024-05-10 11:38] VITALS: BP 162/68; PULSE 72; RESP 14; TEMP 36.6; O2SAT 99
== END 2024-05-10 11:40 | disposition home or self-care (01) ==
PROVIDERS: Emergency Provider Emergency Medicine; PCP Family Medicine; Visit Provider Emergency Medicine
DX: S09.90XA Unspecified injury of head, initial encounter (principal); S42.215A Unspecified nondisplaced fracture of surgical neck of left humerus, initial encounter for closed fracture; S80.212A Abrasion, left knee, initial encounter; W19.XXXA Unspecified fall, initial encounter; G89.29 Other chronic pain; F17.210 Nicotine dependence, cigarettes, uncomplicated; Z79.891 Long term (current) use of opiate analgesic
CPT/HCPCS: 70450; 73030; 96374; 99284; A4216

== ENCOUNTER 2024-08-27 09:00 | Outpatient (RCR) | payer MEDICARE, MEDICAID, SELFPAY ==
--- NOTE | 2024-07-02 08:44 | HP.PTEVAL_ITS ---
Patient's Visit Information Visit Information Visit Information: SOHA COLLADO is a 69 year old F referred to Physical Therapy by Dr. Conner Weber DO with a diagnosis of displaced fracture of surgical neck of L humerus. Date of Evaluation: 06/29/24 Physical Therapist: Sami Carrero DPT Visit Plan Frequency: 2x /Week Duration: 8 weeks Plan: Start with PROM progressing to end ranges. Initiate PROM, table walkaways, pullies. Can add in seated and supine ER. Pt. has a 1/2 pound lifting restriction, may need reminders to maintain. Subjective Subjective: Pt. is here today for her initial evaluation with diagnosis of 2 part displaced fracture of surgical neck of L humerus. Pt. reports falling on her arm resulting in a fracture. Pt. reports 5/10 pain at worst, but currently no pain at rest. Pt. reports having difficulty with UB dressing and use of her L UE over her head. Pt. has not been lifting. Pt. denies N/T, but has pain at L upper arm. Pt. was a sling, but arrives without sling today. She was given pendulums for HEP and has been doing them. Pt. is hopeful to increase her ROM and strength in order to get back to all previously levels of activities. Pain L shoulder: Pain Intensity (Out of 10): 0 Pain Intensity Range: 0 and 5 Objective Objective: POSTURE: Pt. has fairly normal posture in stance. Slight rounded shoulders, but equal heights. Slight indentation at subacromial space. PALPATION: pt. has mild tenderness along proximal humerus. Pt. has slight scapular soreness as well. NEURO: normal sensation and DTR of BUEs. ROM: R shoulder: full ROM without issues. L shoulder: PROM: flexion 100deg, abd 90deg, ER at 60deg of abd 60deg, AROM: flexion 80deg, abd 70deg, functional IR L4, functional ER C2 aberrant motion. MMT: RUE: 5/5. LUE: 3+/5 throughout. Pt. is doing well, but limited into OH motions. Balance/Special Test Scores Quick DASH Score: 43.1800 Goals Goal 1:: LTG: Pt. to be I with HEP. Goal Time Frame: 4-6 Weeks Goal 2:: STG: pt. to have increased PROM to full without increase in L shoulder pain. Goal Time Frame: 2-4 Weeks Goal 3:: LTG: Pt. to have symmetrical B shoulder AROM without increase in L shoulder pain. Goal Time Frame: 4-6 Weeks Goal 4:: LTG: Pt. to have symmetrical strength of BUEs allowing increased ability to complete all ADLs and gardening activities. Goal Time Frame: 6-8 Weeks Goal 5:: STG: Pt. to sleep without increase in L shoulder pain. Goal Time Frame: 2-4 Weeks Rehabilitation Potential Physical Therapy Diagnosis: Pt. has signs and symptoms consistent with displaced fracture of surgical neck of L humerus and subsequent hypomobility and weakness of LUE. Pt. is thus limited in her ADLs and recreational activities. She would benefit from PT to address the above limitations. Rehabilitation Potential: Excellent Anticipated Interventions Patient/Client Instruction: Educate patient on: Condition, Plan of Care, Risk Factors and Benefits of Fitness Program For the Purpose of:: To improve self management, To prevent re-injury, To improve ability to perform tasks related to life management and To improve tolerance to ADL's Therapeutic Exercise to Include: Strength training, Power training, Endurance training, Flexibilty training, Passive ROM and Active ROM For the Purpose of:: To decrease pain, To increase ROM, To improve nutrient delivery to tissue, To increase oxygenation perfusion and To improve muscle performance and motor function Manual Therapy Techniques to Include: Passive ROM For the Purpose of:: To decrease pain and To increase ROM Cryotherapy (ice pack, ice massage): Yes Thermo therapy (hot pack): Yes For the Purpose of:: To decrease pain, To decrease swelling/inflammation and To increase ROM Text: Thank you for the opportunity to evaluate your patient. For Medicare and Medicare HMO plans, please review the plan of care and approve it. It will need to be FAXED BACK to us at [phone] for Medicare purposes. For Medicare only, by signing this I certify the plan of care. Please let me know if there are questions or concerns regarding this plan of care. Physician Signature: Date:
--- NOTE | 2024-08-27 09:35 | HP.PTDCSUM ---
Discharge Summary D/C summary: It has been my pleasure to treat SOHA COLLADO referred by Dr. Conner Weber DO, with the diagnosis of displaced fracture of surgical neck of L humerus for a total of 10 visit(s). Discharge Date: 08/27/24 Please see the following information for a summary of their discharge status. Subjective Subjective: Pt. reports no pain today. Pt. repots doing a lot better overall. HEP compliant without limitations. Pain L shoulder: Pain Intensity (Out of 10): 0 Overall Improvement % Improvement: 99 Objective Objective/Function: AROM: L shoulder flexion 160deg, abd 155deg, functional IR L2, functional ER C4 PROM: L shoulder flexion 170deg, abd 170deg, ER at 90deg, IR at 90deg 40deg. No pain with ROM testing. MMT: symmetrical strength 5/5 throughout increase in symptoms. Pt. is overall doing very well with her strength and ROM. She is I with HEP. I added deltoid strengthen and bicep/tricep strengthening to HEP this date. Pt. is back to all gardening and ADls without limitations. Goals Goal 1:: LTG: Pt. to be I with HEP. Goal Progress: Goal Met Goal 2:: STG: pt. to have increased PROM to full without increase in L shoulder pain. Goal Progress: Goal Met Goal 3:: LTG: Pt. to have symmetrical B shoulder AROM without increase in L shoulder pain. Goal Progress: Goal Met Goal 4:: LTG: Pt. to have symmetrical strength of BUEs allowing increased ability to complete all ADLs and gardening activities. Goal Progress: Goal Met Goal 5:: STG: Pt. to sleep without increase in L shoulder pain. Goal Progress: Goal Met Plan Plan: Pt. to be DC from PT this date. D/C Information Discharge Comments: Pt. to be DC from PT, patient has met all goals. Pt. instructed to ease into strengthening and progress as tolerated. d/c sentence: If there are questions or concerns regarding this patient's physical therapy, please feel free to call me at [phone]. Thank you for the referral of this patient. Sincerely, Sami Nguyen Sipos, DPT Balance/Gait/Functional tests Balance/Special Test Scores Quick DASH Score: 2.2725 Improvement % Improvement: 99
== END 2024-08-27 19:00 | disposition home or self-care (01) ==
LOC: PT 09:00
PROVIDERS: PCP Family Medicine; Referring Provider Orthopaedic Surgery; Visit Provider Orthopaedic Surgery
DX: S42.222D 2-part displaced fracture of surgical neck of left humerus, subsequent encounter for fracture with routine healing (principal)
CPT/HCPCS: 97110; 97140; 97161; 97530

== ENCOUNTER → 2024-11-22 | Outpatient (CLI) | payer MEDICARE, MEDICAID, SELFPAY ==
--- NOTE | 2024-11-22 11:55 | RAD_ITS ---
PROCEDURE: THORACIC SPINE 2 VIEWS REASON FOR EXAM: Degenerative disc disease. TECHNIQUE: Three-view AP and lateral thoracic spine COMPARISON: None provided. RAD/Thoracic Spine 2 Views IMPRESSION: No more than minimal degenerative changes of the thoracic spine are seen, and n o significant disc space narrowing is evident. A minimal degree of gentle thoracic levoscoliosis is seen. No fracture or subluxation is evident. Reading Location: [id number]
== END | disposition home or self-care (01) ==
LOC: RAD 11:54
PROVIDERS: PCP Family Medicine; Referring Provider Anesthesiology Pain Medicine; Visit Provider Anesthesiology Pain Medicine
DX: M51.34 Other intervertebral disc degeneration, thoracic region (principal)
CPT/HCPCS: 72070

== ENCOUNTER → 2024-12-20 | Outpatient (CLI) | payer MEDICARE, MEDICAID, SELFPAY ==
--- NOTE | 2024-12-20 11:51 | RAD_ITS ---
PROCEDURE: HIPS B/L MIN 2 VIEWS W/ PELVIS REASON FOR EXAM: Hip pain, bilateral for years TECHNIQUE: AP pelvis and bilateral AP and frogleg views of the hips, 5 total images COMPARISON: 04/12/2022 FINDINGS: Spinal stimulator device overlies/obscures portions of the upper right iliac. No fracture or dislocation. Joint spaces appear within limits. No suspicious bone lesion. Soft tissues are unremarkable. RAD/Hips B/L min 2 views w/ Pelvis IMPRESSION: No radiographic abnormality as above. Reading Location: [id number]
== END | disposition home or self-care (01) ==
LOC: RAD 11:51
PROVIDERS: PCP Family Medicine; Referring Provider Anesthesiology Pain Medicine; Visit Provider Anesthesiology Pain Medicine
DX: M25.551 Pain in right hip (principal); M25.552 Pain in left hip
CPT/HCPCS: 73521

== ENCOUNTER 2025-02-15 08:58 | Day surgery (SDC) | payer MEDICARE, MEDICAID, SELFPAY ==
[2025-02-15] VITALS (11 sets, daily range): BP systolic 85–120; BP diastolic 49–76; PULSE 71–90; RESP 14–18; TEMP 36.6–37.2; O2SAT 95–100; BMI 18.8
[2025-02-15] MEDS: Lactated Ringers 1,000 ML 15 ML IV (09:39)
--- NOTE | 2025-02-15 09:42 | PCM.PRE.AN2 ---
ASA Classification* ASA Classification ASA Classification: 3 Assessment & Plan Anesthesia* Anesthesia Assessment Anesthesia Assessment: Discussed sedation and/or anesthesia options, risks, benefits, and alternatives with patient/parents/legal guardian/POA. Questions invited. The patient/parents/legal guardian/POA seems to understand and agrees to proceed with anesthesia plan. Reviewed the physical assessment, medical history, allergy history and patient home medications list prior to surgery/procedure/anesthetic and documented any changes. Performed airway and anesthesia risk assessments. Anesthesia Type Anesthesia Type: General History Source History Obtained from:: Patient and Chart Anesthesia Focused Assessment* Temperature: 98.2 F Pulse Rate: 87 Blood Pressure: 114/76 Respiratory Rate: 17 Pulse Ox: 95 Oxygen Delivery Method: Room Air Airway Assessment Mouth opens: >3 cm Mallampati Score: I Teeth Condition: Dentures (upper) Neck Range of motion (ROM): Full ROM Focused Labs Anesthesia Preop lab: CBC WBC 4.8 K/mm3 (4.4-11.0) 06/01/19 09:55 06/01/19 RBC 3.97 M/mm3 (4.2-5.4) L 06/01/19 09:55 06/01/19 Hgb 12.9 g/dL (12.0-15.0) 06/01/19 09:55 06/01/19 Hct 39.0 % (37-47) 06/01/19 09:55 06/01/19 Plt Count 147 K/mm3 (150-450) L 06/01/19 09:55 06/01/19 CHEMISTRY COAG PT 12.4 SECONDS (11.7-14.9) 06/19/19 07:51 06/19/19 Pre-Assessment Diagnosis/Proposed Procedure Planned Operative Procedure(s): BATTERY CHANGE PAIN PUMP Anesthesia History Anesthesia History - basketballs and footballs reverser: Anesthesia History - basketballs and footballs reverser Hx Hospitalization No 02/14/25 11:49 Any Problems With Anesthesia Yes: PONV 02/14/25 11:49 Cholinesterase deficiency No 02/14/25 11:49 You/Your Family Experience No 02/14/25 11:49 fever (hyperthermia) with Relationship Recent Exposure to Contagious No 02/15/25 09:36 Disease Does patient have nerve No: PAIN PUMP 02/14/25 11:49 stimulator Patient instructed to have device shut off --Does patient have Pacemaker No 02/15/25 09:36 or ICD? When Was Last Pacemaker Check QUESTION #4 FULL TEXT: You/Your Family Experience fever (hyperthermia) with Anesthesia Last Oral Intake Last Oral intake: Last Oral Intake NPO since 08:00 02/15/25 09:36 Meds taken in AM with sips of No 02/15/25 09:36 water? Meds patient instructed to take am of surgery PONV PONV - basketballs and footballs reverser: PONV - basketballs and footballs reverser Female Yes 02/14/25 11:49 HX of Motion Sickness No 02/14/25 11:49 HX of N/V After Surgery Yes 02/14/25 11:49 Non-Smoker No 02/14/25 11:49 Duration of Surgery greater No 02/14/25 11:49 than 60 minutes Number of Risk Factors 2 02/14/25 11:49 PONV Score Moderate Risk 02/14/25 11:49 Height & Weight Height & Weight: Anesthesia: Height & Weight Height 5 ft 3 in 02/15/25 09:36 Weight: 48.1 kg 02/15/25 09:36 Body Mass Index (BMI) 18.8 02/15/25 09:36 Respiratory Assessment Respiratory Assessment - basketballs and footballs reverser: Respiratory Tract Infection Hx - basketballs and footballs reverser Hx Respiratory Tract Infection No 02/14/25 11:49 STOP Sleep Apnea STOP Sleep Apnea - basketballs and footballs reverser: STOP Sleep Apnea - basketballs and footballs reverser Hx Hypertension No 02/14/25 11:49 Hx Sleep Apnea No 02/14/25 11:49 CPAP BIPAP Do you snore loudly (louder No 02/14/25 11:49 than talking or can be heard Do you often feel tired/ No 02/14/25 11:49 fatigued/ sleepy during daytime? Has anyone observed you stop No 02/14/25 11:49 breathing during sleep? STOP Results Negative 02/14/25 11:49 QUESTION #5 FULL TEXT : Do you snore loudly (louder than talking or can be heard through closed doors)? Tobacco Use History Tobacco Use History - basketballs and footballs reverser: Tobacco Use History - basketballs and footballs reverser Tobacco Use Smoking Status Current every day smoker 02/14/25 11:49 Hx Tobacco Use Yes 02/14/25 11:49 Years Smoking Packs Smoked per Day 0.5 02/14/25 11:49 Smoking Cessation Date was within the last 15 years Hx Smoking Cessation Date Hx Smoking Cessation Counseling Any additional information?: Yes Tobacco Use: Cigarettes (smoked in AM) Hematologic Medial History Hematologic Hx - basketballs and footballs reverser: Hematologic Medical Hx - industrial insulator Hx of Blood Transfusion No 02/14/25 11:49 Hx of Transfusion in last 3 No 02/14/25 11:49 Months Date of Last Transfusion (if within last 3 months) Ever experience any problems No 02/14/25 11:49 with transfusion(s)? Specify any problems Hx of Preganancy in last 3 N/A 02/14/25 11:49 Months Nurse Filling Out Transfusion NBUCHER 02/14/25 11:49 & Questions: Date: 02/14/25 02/14/25 11:49 Time: 11:52 02/14/25 11:49 Patient unable to answer at this time (ie. confused, unrespo /Reproduction History /Reproductive History - basketballs and footballs reverser: /Reproductive Hx- basketballs and footballs reverser Hx Now No 02/14/25 11:49 Gestational Age (in weeks): EDC: Hx Hx Para Hx Section SAB No 02/14/25 11:49 Active Medications Active Medications: Current Medications Generic Name Dose Route Start Last Admin Trade Name Freq PRN Reason Stop Dose Admin Lactated Ringer's 1,000 mls @ 15 mls/hr 02/15/25 09:15 02/15/25 09:39 IV 15 mls/hr .Q48H DAVID Administration PFSH Medical History Wears dentures Depression Anxiety Arthritis Cancer Bladder disease Migraine headache History of IBS GERD (gastroesophageal reflux disease) Chronic cough Shortness of breath on exertion COPD (chronic obstructive pulmonary disease) Smoker PONV (postoperative nausea and vomiting) History of bladder cancer Chronic pain Home Medications ?Medication ?Instructions ?Recorded ?Last Taken ?Type albuterol sulfate 90 mcg/actuation 2 puff inhalation Q6H PRN 02/05/22 02/15/25 History aerosol inhaler shortness of breath or wheezing diclofenac sodium 1 % topical gel 2 g topical PRN PRN skin cleansing 02/05/22 Unknown History fluticasone propionate 50 1 spray intranasal DAILY PRN nasal 02/05/22 Unknown History mcg/actuation nasal congestion spray,suspension omeprazole 20 mg capsule,delayed 20 mg PO BID 02/05/22 02/14/25 History release polyethylene glycol 3350 17 17 g PO BID 02/05/22 Unknown History gram/dose oral powder pregabalin 75 mg capsule 75 mg PO 4X/DAY 02/05/22 02/15/25 History Dilaudid pain pump OTHER 04/12/22 Unknown History ondansetron 4 mg disintegrating 4 mg PO Q8H PRN PRN nausea/vomiting 02/14/25 Unknown History tablet Allergy/AdvReac Type Severity Reaction Status Date / Time bacitracin (From Neosporin Allergy rash, Verified 02/15/25 09:35 ([id number])) itcing neomycin (From Neosporin Allergy rash, Verified 02/15/25 09:35 ([id number])) itcing polymyxin B (From Neosporin Allergy rash, Verified 02/15/25 09:35 ([id number])) itcing adhesive tape AdvReac Mild skin tears Verified 02/15/25 09:35 Family History Other Hypertension Surgical History History of banding of hemorrhoid History of back surgery History of hysterectomy History of carpal tunnel release of both wrists History of cholecystectomy Social History Smoking Status: Current every day smoker tobacco type: cigarettes Review of Systems (Anesthesia) ROS Narrative System reviewed and no additional complaints, except as documented.
[2025-02-15] MEDS: Ipratropium/Albuterol Sulfate 3 ML AMPUL.NEB INHALATION (10:12)
--- NOTE | 2025-02-15 10:27 | PCM.POST.ANE ---
Anesthesia: Postop Eval I Current Vital Signs Temperature: 98.9 F Pulse Rate: 90 Blood Pressure: 120/63 Respiratory Rate: 14 Pulse Ox: 96 Oxygen Delivery Method: Room Air Assessment Airway patent: Yes Spontaneous unlabored respirations: Yes Mental status: Awake and Calm nausea: No Vomiting: No Anesthesia Complication: No Fluid Hydration Crystalloid volume administer (ml): 650 Total IV fluid infused: 650 Progress Note Anesthesia document: Postop Eval 1 completed: Yes
--- NOTE | 2025-02-15 10:45 | FORE_PTH ---
PATIENT: SOHA COLLADO LOC[place] [facility] [place][id number] AGE/SX: 69/F ROOM: RE02/15/[address]: Dr. Sandro Gramajo MD : [id number] BED: DIS: 02/15/2025 SPEC #: [id number] RECD: 02/15/25 11:48 STATUS: JONATAN REQ #: [id number] LUIZ: 02/15/25 10:[address]: Sandro Gramajo DEPT: SURGICAL PATHOLOGY RECD BY: Nestor Keller ENTERED: 02/15/25 13:33 SP TYPE: FOREIGN B OTHR DR: MARITZA LEBLANC DO Tissues: A - FOREIGN BODY Procedures: Surgery Specimen Level I HEADER OPERATION: Battery change, pain pump PRE-OP DIAGNOSIS: Chronic pain syndrome, sacroiliitis TISSUE SUBMITTED: A- Pain pump MICROSCOPIC DIAGNOSIS A. satellite instruction facilitator, pain pump, explant: * satellite instruction facilitator confirmed (gross examination only). MICROSCOPIC DESCRIPTION Slides are reviewed. GROSS DESCRIPTION A. Received fresh in a container labeled with the patient's name, date of , and pain pump is a 147.4 g teardrop-shaped silver metal device measuring 8.5 x 7.3 x 1.9 cm. One side displays the inscription, [employer], SynchroMed II Programmable Pump, 8637-20 SN [id number] [employer] [facility]. No soft tissue is received; no sections are submitted for microscopic evaluation, GROSS ONLY. [facility] 02/15/2025 CPT:92311
[2025-02-15] MEDS: Cefazolin 2 GM in Syringe IV (10:49)
[2025-02-15] MEDS: Lidocaine 1% /Epi 1:100 (20ml) 20 ML Vial (11:06)
--- NOTE | 2025-02-15 11:41 | PCM.POST.ANE ---
Anesthesia: Postop Eval I Current Vital Signs Temperature: 97.9 F Pulse Rate: 77 Blood Pressure: 85/56 Respiratory Rate: 16 Pulse Ox: 98 Oxygen Delivery Method: Room Air Assessment Airway patent: Yes Spontaneous unlabored respirations: Yes Mental status: Awake and Calm nausea: No Vomiting: No Anesthesia Complication: No Fluid Hydration Crystalloid volume administer (ml): 700 Total IV fluid infused: 700 Progress Note Anesthesia document: Postop Eval 1 completed: Yes
--- NOTE | 2025-02-15 11:47 | POSTOPAN2_ITS ---
Anesthesia Postop Eval I Sum Postop Eval Completion status Anesthesia document: Postop Eval 1 completed: Yes Anesthesia Postop Eval I Summary Anesthesia Postop Eval I Summary: Anesthesia Postop Eval I: Assessment Summary Airway patent Yes 02/15/25 11:41 [email or web address] Spontaneous unlabored Yes 02/15/25 11:41 REPAIRER [email or web address] respirations Mental status Awake,Calm 02/15/25 11:41 REPAIRER [email or web address] nausea No 02/15/25 11:41 REPAIRER [email or web address] Vomiting No 02/15/25 11:41 REPAIRER [email or web address] Anesthesia Postop Eval I: Fluid Summary Crystalloid volume administer 700 02/15/25 11:41 REPAIRER [email or web address] (ml) Colloids volume administered ( ml) Blood Product volume administered (ml) Total IV fluid infused 700 02/15/25 11:41 REPAIRER [email or web address] Anesthesia Postop Eval I: Summary Notes Anesthesia Complication No 02/15/25 11:41 REPAIRER [email or web address] Anesthesia Complication Comment: Post-operative progress note Anesthesia: Postop Eval II Evaluation Mental status: Awake and Calm Pain Level: 4 nausea: Yes Vomiting: No Complications Anesthesia Complication: No
--- NOTE | 2025-02-15 11:47 | PCM.POSTANE2 ---
Anesthesia Postop Eval I Sum Postop Eval Completion status Anesthesia document: Postop Eval 1 completed: Yes Anesthesia Postop Eval I Summary Anesthesia Postop Eval I Summary: Anesthesia Postop Eval I: Assessment Summary Airway patent Yes 02/15/25 11:41 NURSE [email or web address] Spontaneous unlabored Yes 02/15/25 11:41 NURSE [email or web address] respirations Mental status Awake,Calm 02/15/25 11:41 NURSE [email or web address] nausea No 02/15/25 11:41 NURSE [email or web address] Vomiting No 02/15/25 11:41 NURSE [email or web address] Anesthesia Postop Eval I: Fluid Summary Crystalloid volume administer 700 02/15/25 11:41 NURSE [email or web address] (ml) Colloids volume administered ( ml) Blood Product volume administered (ml) Total IV fluid infused 700 02/15/25 11:41 NURSE [email or web address] Anesthesia Postop Eval I: Summary Notes Anesthesia Complication No 02/15/25 11:41 NURSE [email or web address] Anesthesia Complication Comment: Post-operative progress note Anesthesia: Postop Eval II Evaluation Mental status: Awake and Calm Pain Level: 4 nausea: Yes Vomiting: No Complications Anesthesia Complication: No
[2025-02-15] MEDS: oxyCODONE 5 MG Tablet PO (12:46)
[2025-02-15] MEDS: Acetaminophen 325 MG Tablet PO (12:46)
== END 2025-02-15 13:08 | disposition home or self-care (01) ==
LOC: SDC 09:00 → AC 09:02
PROVIDERS: PCP Family Medicine; Referring Provider Anesthesiology Pain Medicine; Visit Provider Anesthesiology Pain Medicine
PROC: (CPT 62362; principal; 2025-02-15 10:30)
DX: M46.1 Sacroiliitis, not elsewhere classified (principal); F17.210 Nicotine dependence, cigarettes, uncomplicated; G89.4 Chronic pain syndrome; Z79.899 Other long term (current) drug therapy; Z79.51 Long term (current) use of inhaled steroids
CPT/HCPCS: 62362; 01991; 88300; 94640; J2405

== ENCOUNTER 2025-08-16 11:45 | Emergency (ER) | payer MEDICARE, MEDICAID, SELFPAY ==
[2025-08-16 11:46] VITALS: BP 141/79; PULSE 99; RESP 20; TEMP 36.9; O2SAT 99; BMI 19.3
--- NOTE | 2025-08-16 12:39 | CT_ITS ---
PROCEDURE: PELVIS WITHOUT IV CONTRAST 08/16/2025 REASON FOR EXAM: SUPERIOR RAMUS FX ON 08/03, FELL AGAIN WORSENING TECHNIQUE: Procedure Code: CTPEL Modality: CT Procedure: PELVIS WITHOUT IV CONTRAST One or more dose reduction techniques were used (e.g., Automated exposure control, adjustment of the mA and/or kV according to patient size, use of iterative reconstruction technique). RADIATION DOSE SUMMARY: CTDlvol: 9.46 mGy DLP: 311 mGycm COMPARISON: Hip x-ray November 30, 2024. FINDINGS: Bones: No acute bony abnormalities. Hip Joints: Unremarkable. SI Joints: Unremarkable. Soft Tissues: No acute soft tissue abnormalities. No visualized acute pelvic abnormalities. Atherosclerotic calcifications of the aorta and iliac arteries. A battery in the right pelvic wall. CT/Pelvis without IV Contrast IMPRESSION: No acute findings. Reading Location: [facility]
[2025-08-16 14:24] VITALS: BP 138/72; PULSE 87; RESP 18; TEMP 36.9; O2SAT 99
--- NOTE | 2025-08-16 15:36 | EDS_ITS ---
HPI History of Present Illness Chief Complaint: Other, Pain/Inj Narrative Narrative: Patient is a 70-year-old female presenting to the emergency department for right hip pain. Patient has a past medical history of chronic back pain with Dilaudid pain pump, sciatica, neck pain, subdural neuralgia. Patient states that on 07/31 she fell onto her right hip and was seen on 08/03 at [facility] where she was diagnosed with a right sided superior rami fracture. She was discharged and followed up with her primary care doctor who prescribed her 28 tablets of [employer]. She states she is been taking these for pain control at home. She states that 2 or 3 nights ago she woke up and fell out of bed onto her right hip. She denies hitting her head or any loss of consciousness. Denies any worsening neck or back pain. She has been able to ambulate since. States that she is now having worsening pain since she fell 2 to 3 days ago causing her to come to the emergency department to be evaluated. [facility] Medical History Wears dentures Depression Anxiety Arthritis Cancer Bladder disease Migraine headache History of IBS GERD (gastroesophageal reflux disease) Chronic cough Shortness of breath on exertion COPD (chronic obstructive pulmonary disease) Smoker PONV (postoperative nausea and vomiting) History of bladder cancer Chronic pain Home Medications ?Medication ?Instructions ?Recorded ?Last Taken ?Type albuterol sulfate 90 mcg/actuation 2 puff inhalation Q 6H PRN 02/05/22 02/15/25 History aerosol inhaler shortness of breath or wheez ing diclofenac sodium 1 % topical gel 2 g topical PRN PRN skin cleansing 02/05/22 Unknown History fluticasone propionate 50 1 spray intranasal DAILY PRN nasal 02/05/22 Unknown History mcg/actuation nasal congestion spray,suspension omeprazole 20 mg capsule,delayed 20 mg PO BID 02/05/22 02/14/25 History release polyethylene glycol 3350 17 17 g PO BID 02/05/22 Unkno wn History gram/dose oral powder pregabalin 75 mg capsule 75 mg PO 4X/DAY 02/05/22 History Dilaudid pain pump OTHER 04/12/22 Unknown Histo ry ondansetron 4 mg disintegrating 4 mg PO Q8H PRN PRN na usea/vomiting 02/14/25 Unknown History tablet Allergy/AdvReac Type Severity Reaction Status Date / Time bacitracin (From Neosporin Allergy rash, Verified 08/16/25 11:49 ([id number])) itcing neomycin (From Neosporin Allergy rash, Verified 08/16/25 11:49 ([id number])) itcing polymyxin B (From Neosporin Allergy rash, Verified 08/16/25 11:49 ([id number])) itcing adhesive tape AdvReac Mild skin tears Verified 08/16/25 11:49 Family History Other Hypertension Surgical History History of banding of hemorrhoid History of back surgery History of hysterectomy History of carpal tunnel release of both wrists History of cholecystectomy Social History Smoking Status: Current every day smoker tobacco type: cigarettes ROS ROS ED ROS Narrative See HPI EXAM Physical Exam Narrative Exam Narrative: Vital signs: Reviewed General: Alert and orientedx3. No acute distress HEENT: Head is normocephalic and atraumatic, sinuses nontender, pupils equal round and reactive. Nares are patent. Oropharynx and throat exams normal. Neck: Supple without lymphadenopathy nontender. No midline cervical spinal tenderness to palpation. No step-offs or deformities. Cardiovascular: Regular rate and rhythm, no murmurs. No rubs or gallops. Normal S1 and S2 Respiratory: Clear to auscultation bilaterally. No wheezes, rales, rhonchi Abdominal: Soft and nontender. Normal bowel sounds. No guarding or rebound. Nonsurgical abdomen Extremities: No midline thoracic or lumbar spinal tenderness to palpation. No step-offs or deformities. Right hip has posterior lateral tenderness to palpation. There is no ecchymosis or erythema to the hip or leg. There is no tenderness to palpation of the femur, knee, tib-fib, ankle or foot. Patient is able to flex and extend at the hip with no significant difficulty. Normal range of motion. Normal sensation. DP and PT pulses are intact bilaterally. Skin: No rash or redness. Neurological: Cranial nerves II through XII are grossly intact. Normal strength and sensation. Normal cerebellar function The rest of the physical exam is unremarkable Const Vital Signs: 08/16/25 11:46 08/16/25 14:24 Temperature 98.5 F 98.5 F Temperature Source Oral Pulse Rate 99 87 Respiratory Rate 20 H 18 Blood Pressure 141/79 H 138/72 H Blood Pressure Mean 99 94 Pulse Ox 99 99 MDM MDM MDM Narrative Medical decision making narrative: Patient is a 70-year-old female presenting to the emergency department for right hip pain. Patient was seen and examined. Vitals are stable. Patient resting bed comfortably no acute distress. Patient reportedly had a fracture seen on her imaging done on 08/03. The imaging report as well as the images were attempted to be obtained from the facility with no luck. Her discharge paperwork that she shows me shows that she had a superior rami fracture. Will obtain a pelvis CT here to evaluate for any abnormalities or worsening of the fracture. Pelvis CT here was reviewed by myself, no fractures or dislocations seen. Radiology read with no acute findings. Patient has no warmth, swelling or redness to the hip. She is able to flex and extend without any difficulty. I do not think this is a septic joint. She was already prescribed a significant amount of narcotics which she still has a few pills left. I recommended that she take these at home if she needs something for pain but informed her that I will be not prescribing her anything else. She is also on a Dilaudid pump. She is able to ambulate here wit hout difficulty. Patient discharged from the Emergency Department. I do not feel that the patient's evaluation reveals any acute reason for admission at this time. I instructed them to either follow-up with their primary care physician or promptly return to the Emergency Department for reevaluation should symptoms worsen or new symptoms develop. I explained what symptoms would indicate the need to return to the emergency department. Shared decision making was used. The patient voiced understanding of the treatment plan and is agreeable with it. Clinical impression: right hip pain History & Record Review Discussion w/independent historian: Patient and Friend Radiography Diagnostic Testing: Clinical Impression(s) from Imaging Studies Pelvis CT 08/16/25 12:39 IMPRESSION: No acute findings. Reading Location: [facility] Discharge Plan Triage Chief Complaint: Other, Pain/Inj ED Provider: Lucinda Westbrook Dx/Rx/DC Orders Clinical Impression: Hip pain, right Instructions: ED Hip Contusion, ED RICE Prescriptions: No Action fluticasone propionate 50 mcg/actuation spray,suspension 1 spray intranasal DAILY PRN (Reason: nasal congestion) Patient Comments: USE 2 SPRAY(S) IN EACH NOSTRIL ONCE DAILY albuterol sulfate 90 mcg/actuation HFA aerosol inhaler 2 puff inhalation Q6H PRN (Reason: shortness of breath or wheezing) Patient Comments: INHALE 2 PUFFS BY MOUTH EVERY 4 HOURS NEEDED FOR WHEEZING pregabalin 75 mg capsule 75 mg PO 4X/DAY Patient Comments: TAKE 1 CAPSULE BY MOUTH 4 TIMES DAILY omeprazole 20 mg capsule,delayed release(DR/EC) 20 mg PO BID Patient Comments: TAKE 1 CAPSULE BY MOUTH TWICE DAILY diclofenac sodium 1 % gel 2 g topical PRN PRN (Reason: skin cleansing) Patient Comments: APPLY ONE GRAM TO THE AFFECTED AREA TWO TO THREE TIMES DAILY polyethylene glycol 3350 17 gram/dose powder 17 g PO BID Patient Comments: DISSOLVE 1 CAPFUL (17 GRAMS) IN LIQUID & DRINK TWICE DAILY Dilaudid pain pump OTHER ondansetron 4 mg tablet,disintegrating 4 mg PO Q8H PRN PRN (Reason: nausea/vomiting) Primary Care Provider: MARITZA LEBLANC Referrals: MARITZA LEBLANC DO [Primary Care Provider, Medical] - As soon as possible Activity Restrictions/Additional Instructions: Your evaluation in the Emergency Department did not reveal any acute reason for admission. However, I want to emphasize that you may be early in the course of a disease process or illness even if it is not present. For this reason you should follow-up within 24 hours for reevaluation with either your primary care physician or if necessary back here in the Emergency Department. You should return to the Emergency Department immediately if your symptoms worsen or new symptoms develop. Print Language: Citizen Of [place] Disposition Disposition: Home, Self Care Discharge Date/Time: 08/16/25 14:25
== END 2025-08-16 14:25 | disposition home or self-care (01) ==
PROVIDERS: Emergency Provider Student in an Organized Health Care Education/Training Program; PCP Family Medicine; Visit Provider Student in an Organized Health Care Education/Training Program
DX: M25.551 Pain in right hip (principal); J44.9 Chronic obstructive pulmonary disease, unspecified; G89.29 Other chronic pain; M54.9 Dorsalgia, unspecified; W06.XXXA Fall from bed, initial encounter; Z85.51 Personal history of malignant neoplasm of bladder; Z79.51 Long term (current) use of inhaled steroids; K21.9 Gastro-esophageal reflux disease without esophagitis; Z90.710 Acquired absence of both cervix and uterus; Z90.49 Acquired absence of other specified parts of digestive tract; F17.210 Nicotine dependence, cigarettes, uncomplicated
CPT/HCPCS: 72192; 99282

== ENCOUNTER → 2025-09-12 | Outpatient (CLI) | payer MEDICARE, MEDICAID, SELFPAY ==
[2025-09-12 12:47] LABS: Barbiturate Urine NEGATIVE (< 200 ng/mL); Benzodiazepine Urine NEGATIVE (< 200 ng/mL); PCP Urine NEGATIVE (< 25 ng/mL); THC Urine NEGATIVE (< 50 ng/mL)
== END | disposition home or self-care (01) ==
LOC: LAB 11:06
PROVIDERS: PCP Family Medicine; Referring Provider Anesthesiology Pain Medicine; Visit Provider Anesthesiology Pain Medicine
DX: F11.20 Opioid dependence, uncomplicated (principal)
CPT/HCPCS: 80307